=== PATIENT | female | born 1995 | race Caucasian/White ===

== ENCOUNTER 2020-04-29 21:12 | Emergency (ER) | payer OTHER, SELFPAY ==
--- NOTE | ~2020-04-29 | XR_ITS ---
EXAMINATION: XR forearm LT 2V, XR elbow LT min 3V EXAM DATE: 04/29/2020 22:09 INDICATION: Initial encounter following injury, with pain of the left forearm. TECHNIQUE: Left forearm frontal and lateral projections obtained and reviewed. Left elbow frontal, la teral with flexion, and oblique projections obtained and reviewed. There is no prior study for daniel hooper. FINDINGS: There is acute left radial head/neck fracture with significant displacement of a sizable po rtion of the articular surface of the radial head. Closed, posttraumatic fracture. There is large elb ow joint hemarthrosis. The shafts of the radius and ulna are unremarkable. IMPRESSION: Acute mildly comminuted, displaced left radial head/neck fracture. Reviewed, dictated and finalized at location A. IMPRESSION: Acute mildly comminuted, displaced left radial head/neck fracture.
[2020-04-29 21:22] VITALS: BP 144/96; PULSE 102; RESP 15; TEMP 37.5; O2SAT 100
--- NOTE | 2020-04-29 22:48 | ED.UPPEXIN ---
HPI - Extremity Injury (Upper) General Chief Complaint: Extremity Injury, Upper <ROXANA Rojas Last Filed: 04/30/20 00:57> Stated Complaint: Fell while roller bladding <ROXANA Rojas Last Filed: 04/30/20 00:57> Time Seen by Provider: 04/29/20 22:35 <ROXANA Rojas Last Filed: 04/30/20 00:57> Source: patient <ROXANA Rojas Last Filed: 04/30/20 00:57> Mode of arrival: ambulatory <ROXANA Rojas Last Filed: 04/30/20 00:57> Limitations: no limitations <ROXANA Rojas Last Filed: 04/30/20 00:57> History of Present Illness HPI narrative: This is a 24 year old female that presents to the ER for left elbow pain after a fall today. Reports she was roller blading and hit some rocks causing her to lose balance. Reports she fell onto her left elbow. Denies hitting her head or loss of consciousness. Reports since she has had pain in the left elbow. Reports she is unable to straighten the elbow due to pain. Denies numbness. <ROXANA Rojas Last Filed: 04/30/20 00:57> Related Data Home Medications: Home Medications Medication Instructions Recorded Confirmed etonogestrel-ethinyl estradiol vag ring VAGINAL 04/29/20 <ROXANA Rojas Last Filed: 04/30/20 00:57> Allergies/Adverse Reactions: Allergies Allergy/AdvReac Type Severity Reaction Status Date / Time No Known Allergies Allergy Unverified 04/29/20 21:26 <ROXANA Rojas Last Filed: 04/30/20 00:57> Review of Systems Review of Systems: Narrative: CONSTITUTIONAL: Denies fever MUSCULOSKELETAL: Reports joint pain, and myalgia. NEUROLOGIC: Denies numbness, or weakness. <ROXANA Rojas Last Filed: 04/30/20 00:57> All systems reviewed & are unremarkable except as noted in HPI and below <Dania Bacon PA-C - Last Filed: 04/30/20 00:57> PMFSH Past Medical History Medical History: Medical History (Updated 04/30/20 @ 00:09 by Dania Bacon PA-C) No active medical problems <Dania Bacon PA-C - Last Filed: 04/30/20 00:57> Social History Social History: Social History Smoking status: Never smoker <Dania Bacon PA-C - Last Filed: 04/30/20 00:57> Exam Narrative: Exam Narrative: GENERAL: Well-appearing, well-nourished, and in no acute distress. HEAD: Normocephalic, atraumatic. EYES: EOMI. CHEST: Clear to auscultation. No respiratory distress. No wheezes rales or rhonchi HEART: Regular rate and rhythm. No murmur heard. Normal peripheral pulses. EXTREMITIES: Normal range of motion, except decreased extension in the left elbow. No edema. Normal sensation. Normal radial pulses SKIN: Warm, dry, no rash. NEURO: No focal deficits. Alert and oriented x3. PSYCH: Normal mood and affect <Dania Bacon PA-C - Last Filed: 04/30/20 00:57> Course Consultations Consultation #1: Spoke with orthopedics on-call who reports this needs to be seen by someone who specializes and elbows likely at tertiary care center. <Dania Bacon PA-C - Last Filed: 04/30/20 00:57> Date: 04/30/20 <Dania Bacon PA-C - Last Filed: 04/30/20 00:57> Time: 00:08 <Dania Bacon PA-C - Last Filed: 04/30/20 00:57> Consultation #2: Spoke with [facility] transfer line and will give patient clinic number for follow-up. <Dania Bacon PA-C - Last Filed: 04/30/20 00:57> Date: 04/30/20 <Dania Bacon PA-C - Last Filed: 04/30/20 00:57> Time: 00:09 <Dania Bacon PA-C - Last Filed: 04/30/20 00:57> Vital Signs Vital signs: Vital Signs Temperature 99.5 F 04/29/20 21:22 Pulse Rate 102 H 04/29/20 21:22 Respiratory Rate 15 04/29/20 21:22 Blood Pressure 144/96 H 04/29/20 21:22 Pulse Oximetry 100 04/29/20 21:22 Temperature 98.0 F 04/30/20 01:34 Pulse Rate 90 04/30/20 01:22 Respiratory Rate 14 04/30/20 01:22 Blood Pressure 131/74 04/30/20 01:22 Pulse Oximet
[2020-04-29] MEDS: KETOROLAC (*BKC) 60 MG/2 ML VIAL IM (22:58)
[2020-04-29 23:22] VITALS: BP 147/98; PULSE 105; RESP 18; O2SAT 98
[2020-04-29 23:28] VITALS: TEMP 36.7
[2020-04-30 00:36] VITALS: BP 130/66; PULSE 98; RESP 14; O2SAT 98
[2020-04-30 01:22] VITALS: BP 131/74; PULSE 90; RESP 14; TEMP 36.7; O2SAT 99
[2020-04-30 01:34] VITALS: TEMP 36.7
== END 2020-04-30 01:25 | disposition home or self-care (01) ==
PROVIDERS: Emergency Provider General Practice
DX: S52.122A Displaced fracture of head of left radius, initial encounter for closed fracture (principal); V00.111A Fall from in-line roller-skates, initial encounter; Y93.51 Activity, roller skating (inline) and skateboarding
CPT/HCPCS: 29105; 73080; 73090; 99284; A4565; A9270; J1885

== ENCOUNTER 2020-07-09 16:37 | Emergency (ER) | payer OTHER, SELFPAY ==
--- NOTE | ~2020-07-09 | CT_ITS ---
EXAMINATION: CT abdomen pelvis w con EXAM DATE: 07/09/2020 19:04 INDICATION: Abdominal pain, flank pain, dysuria. History of kidney stones. TECHNIQUE: Spiral CT of the abdomen and pelvis was performed following intravenous injection of 100 m L Omnipaque 350. Axial, coronal and sagittal images were reviewed. The dose-length product (DLP) fo r this examination was 939.45 mGy-cm. The exposure was tailored according to patient size (auto mA e xposure control), and iterative reconstruction (ASIR) was used as additional dose reduction technique . There is no prior study for comparison. FINDINGS: The liver, spleen, adrenal glands and pancreas are unremarkable. Gallbladder is unremarkab le. No biliary obstruction. Portal and splenic veins are patent. Kidneys enhance symmetrically. T here is no hydronephrosis. There is a punctate stone in each kidney. There is a 4 mm calcification al vince the course of the left ureter, suspicious for distal ureteral stone. This is about 2 cm from the ureterovesicular junction. Could be intermittently obstructing given that there is no hydronephrosis. Less likely phlebolith. The uterus is anteverted and morphologically normal. The bladder is unrema rkable. There is no retroperitoneal or pelvic lymphadenopathy. The appendix is normal. The stomach and small bowel are unremarkable. There is expected amount of c olonic stool. No free intraperitoneal gas. The heart is normal in size. There are no pericardial or pleural effusions. The lung bases are unremarkable. The bones are unremarkable. IMPRESSION: 1. Calcification suspicious for 4 mm distal left ureteral stone. No hydronephrosis (intermittently o bstructing?) 2. Punctate bilateral nephrolithiasis. Reviewed, dictated and finalized at location A. IMPRESSION: 1. Calcification suspicious for 4 mm distal left ureteral stone. No hydronephr osis (intermittently obstructing?) 2. Punctate bilateral nephrolithiasis.
[2020-07-09 17:08] VITALS: BP 147/87; PULSE 87; RESP 20; TEMP 37.1; O2SAT 97
--- NOTE | 2020-07-09 17:38 | ED.FEMALEGU ---
HPI - Female Genitourinary General Chief complaint: Urogenital-Female Stated complaint: L flank pain Time Seen by Provider: 07/09/20 17:15 Source: patient Mode of arrival: ambulatory Limitations: no limitations History of Present Illness HPI Narrative: This is a 24-year-old female that presents the emergency department for dysuria x6 days. Also reports lower abdominal discomfort. No concern for STDs. Denies fever, nausea, vomiting, or hematuria. Related Data Home Medications Medication Instructions Recorded Confirmed etonogestrel-ethinyl estradiol vag ring VAGINAL 04/29/20 Allergies Allergy/AdvReac Type Severity Reaction Status Date / Time No Known Allergies Allergy Unverified 04/29/20 21:26 Review of Systems Review of Systems: Narrative: CONSTITUTIONAL: Denies fever GASTROINTESTINAL: Reports abdominal pain. Denies nausea, vomiting, or diarrhea. GENITOURINARY: Reports dysuria. Denies hematuria. All systems reviewed & are unremarkable except as noted in HPI and below PMFSH Past Medical History Medical History (Updated 07/09/20 @ 19:23 by Dania Bacon PA-C) No active medical problems Social History Social History Smoking status: Never smoker Exam Narrative: Exam Narrative: GENERAL: Well-appearing, obese, and in no acute distress. HEAD: Normocephalic, atraumatic. EYES: EOMI. CHEST: Clear to auscultation. No respiratory distress. No wheezes rales or rhonchi HEART: Regular rate and rhythm. No murmur heard. Normal peripheral pulses. ABDOMEN: Soft, nondistended, normal active bowel sounds. Mild tenderness to palpation throughout the lower abdomen, without guarding EXTREMITIES: Normal range of motion. No edema. SKIN: Warm, dry, no rash. NEURO: No focal deficits. Alert and oriented x3. PSYCH: Normal mood and affect Course Vital Signs Vital signs: Vital Signs Temperature 98.7 F 07/09/20 17:08 Pulse Rate 87 07/09/20 17:08 Respiratory Rate 07/09/20 17:08 Blood Pressure 147/87 H 07/09/20 17:08 Pulse Oximetry 97 07/09/20 17:08 Temperature 98.7 F 07/09/20 17:08 Pulse Rate 87 07/09/20 17:08 Respiratory Rate 20 07/09/20 17:08 Blood Pressure 147/87 H 07/09/20 17:08 Pulse Oximetry 97 07/09/20 17:08 MDM - Female Genitourinary MDM Narrative Medical decision making narrative: Patient presents to the emergency department for lower abdominal discomfort and dysuria. She is afebrile and nontoxic-appearing. CBC is without leukocytosis. Metabolic panel without concerning findings. UA without evidence of infection. With 6-10 red blood cells. Bedside test is negative. CT scan of the abdomen and pelvis shows a calcification suspicious for 4 mm distal left ureteral stone. Patient updated on case findings. She will be started on Flomax and given pain medication as needed. She will be given a urine strainer. She is to follow-up with urology. Patient was given warnings to return to the ER Lab Data Attestation: I reviewed the patient's lab results. Result diagrams: 07/09/20 17:29 07/09/20 17:29 Labs: Lab Results 07/09/20 07/09/20 07/09/20 Range/Units 17:26 17:29 17:29 WBC 9.0 (4.5-10.0) K/mm3 RBC 4.30 (4.2-5.4) M/mm3 Hgb 13.1 (12.0-15.0) g/dL Hct 38.2 (37.0-47.0) % MCV 88.8 (80-100) fl MCH 30.5 (26-34) pg MCHC 34.3 (32-36) g/dl RDW 13.0 (11.5-14.5) % Plt Count 327 (150-375) k/mm3 MPV 10.2 (7.4-10.4) fl Immature Gran % (Auto) 0.2 (0-0.5) % Neut % (Auto) 51.4 (45.5-73.1) % Lymph % (Auto) 37.3 (18.3-44.2) % [place] % (Auto) 9.5 H (2.6-8.5) % Eos % (Auto) 1.3 (0-4.4) % Baso % (Auto) 0.3 (0.2-1.2) % Lymph # (Auto) 3.34 H (0.9-3.2) K/mm3 [place] # (Auto) 0.9 H (0.1-0.6) K/mm3 Eos # (Auto) 0.1 (0-0.3) K/mm3 Baso # (Auto) 0.0 (0.0-0.1) K/mm3 Abs Immat Gran (auto) 0.02 (0.00-0.031) K/mm3 Absolute Neuts (auto) 4.6 (1.3-6.7)
[2020-07-09 17:41] LABS: Basophils Percent Auto 0.3 % (0.2-1.2); Eosinophils Absolute Auto 0.1 K/mm3 (0-0.3); Eosinophils Percent Auto 1.3 % (0-4.4); Hematocrit 38.2 % (37.0-47.0); Hemoglobin 13.1 g/dL (12.0-15.0); Immature Granulocyte Absolute 0.02 K/mm3 (0.00-0.031); Immature Granulocyte Percent A 0.2 % (0-0.5); Lymphocytes Absolute Auto 3.34 K/mm3 (0.9-3.2); Lymphocytes Percent Auto 37.3 % (18.3-44.2); Mean Corpuscular HGB Conc 34.3 g/dl (32-36); Mean Corpuscular Hemoglobin 30.5 pg (26-34); Mean Corpuscular Volume 88.8 fl (80-100); Mean Platelet Volume 10.2 fl (7.4-10.4); Monocytes Absolute Auto 0.9 K/mm3 (0.1-0.6); Monocytes Percent Auto 9.5 % (2.6-8.5); Neutrophils Absolute Auto 4.6 K/mm3 (1.3-6.7); Neutrophils Percent Auto 51.4 % (45.5-73.1); Platelet Count Result 327 k/mm3 (150-375)
[2020-07-09 17:46] LABS: Add Urine Microscopic? YES; Appearance Urine Clear (Clear); Bacteria Urine Trace /hpf; Bilirubin Urine Negative (Negative); Blood Urine 1+ (Negative); Color Urine Straw (Yellow); Glucose Urine UA Negative (Negative); Ketones Urine Negative (Negative); Leukocyte Esterase Ur Negative LEU/UL (Negative); Nitrate Urine Negative (Negative); Protein Urine Negative (Negative); Specific Grav Ur 1.015 (1.001-1.035); Squamous Epithelial Cell Urine Rare /hpf (Few); Urobilinogen Urine Negative mg/dL (<2.0); WBC Urine 0-3 /hpf
[2020-07-09 17:55] LABS: Anion Gap 8 mmol/L (8-16); Blood Urea Nitrogen 9 mg/dL (7-17); Calcium 9.3 mg/dL (8.4-10.2); Carbon Dioxide 24 mmol/L (22-30); Chloride 103 mmol/L (98-107); Estimated CRCL calculation 108 ml/min; Estimated Glomerular Filt Rate > 60; Glucose 91 mg/dL (65-105); Potassium 3.7 mmol/L (3.4-5.0); Sodium 135 mmol/L (137-145)
[2020-07-09 19:51] VITALS: BP 130/72; PULSE 78; RESP 18; O2SAT 99
== END 2020-07-09 19:55 | disposition home or self-care (01) ==
PROVIDERS: Physician Assistant; Emergency Provider Emergency Medicine
DX: N20.1 Calculus of ureter (principal)
CPT/HCPCS: 36415; 74177; 80048; 81001; 81025; 85025; 99284; Q9967

== ENCOUNTER 2020-08-25 13:57 | Emergency (ER) | payer OTHER, SELFPAY ==
--- NOTE | ~2020-08-25 | CT_ITS ---
EXAMINATION: CT abdomen pelvis wo con DATE: 08/25/2020 18:11 INDICATION: Kidney stone presenting with left flank pain TECHNIQUE: Computed tomography (CT) of the abdomen and pelvis was performed without intravenous contr ast. Automated exposure control and iterative reconstruction technique were employed. The dose-length product was 584.21 mGy-cm. COMPARISON: 07/09/2020 FINDINGS: Lung bases are clear. Heart size is normal. No pericardial or pleural effusion. Liver, gallbladder, s pleen, pancreas and bilateral adrenal glands are normal. Bilateral nephrolithiasis with 1-2 mm and <1 mm stones in an upper pole calyx of the right kidney and 2 mm and <1 mm stones in a lower pole calyx of the left kidney. No interval change in a 3 mm calcification along the course of the distal left u reter which remains indeterminate for nonobstructing distal left ureteral stone versus adjacent phleb olith. No hydronephrosis in either kidney. Bowels including the appendix are normal. 2 cm left adnexa l cyst/follicle. Bladder, anteverted uterus and right adnexa are unremarkable. No free intraperitonea l gas or fluid. No pathologically enlarged abdominal or pelvic lymphadenopathy. Mild lumbar levocurva ture with minimal spondylosis. IMPRESSION: 1. Bilateral nonobstructing nephrolithiasis. Persistent 3 mm calcific calcification along the course of the distal left ureter which could represent a nonobstructing stone or more likely an adjacent phl ebolith. 2. 2 cm left adnexal cyst/follicle. Reviewed, dictated and finalized at location A. IMPRESSION: 1. Bilateral nonobstructing nephrolithiasis. Persistent 3 mm calcific calcifica tion along the course of the distal left ureter which could represent a nonobst ructing stone or more likely an adjacent phlebolith. 2. 2 cm left adnexal cyst/follicle.
[2020-08-25 14:17] VITALS: BP 139/107; PULSE 108; RESP 14; TEMP 36.7; O2SAT 99
[2020-08-25 14:28] LABS: Basophils Percent Auto 0.3 % (0.2-1.2); Eosinophils Absolute Auto 0.1 K/mm3 (0-0.3); Eosinophils Percent Auto 1.3 % (0-4.4); Hematocrit 42.3 % (37.0-47.0); Hemoglobin 14.2 g/dL (12.0-15.0); Immature Granulocyte Absolute 0.02 K/mm3 (0.00-0.031); Immature Granulocyte Percent A 0.2 % (0-0.5); Lymphocytes Absolute Auto 2.54 K/mm3 (0.9-3.2); Lymphocytes Percent Auto 29.1 % (18.3-44.2); Mean Corpuscular HGB Conc 33.6 g/dl (32-36); Mean Corpuscular Hemoglobin 30.1 pg (26-34); Mean Corpuscular Volume 89.6 fl (80-100); Mean Platelet Volume 10.6 fl (7.4-10.4); Monocytes Absolute Auto 0.4 K/mm3 (0.1-0.6); Monocytes Percent Auto 4.5 % (2.6-8.5); Neutrophils Absolute Auto 5.6 K/mm3 (1.3-6.7); Neutrophils Percent Auto 64.6 % (45.5-73.1); Platelet Count Result 282 k/mm3 (150-375); Red Blood Count 4.72 M/mm3 (4.2-5.4); Red Cell Distribution Width 12.5 % (11.5-14.5); White Blood Count 8.7 K/mm3 (4.5-10.0)
[2020-08-25 14:42] LABS: Anion Gap 10 mmol/L (8-16); Blood Urea Nitrogen 7 mg/dL (7-17); Calcium 9.5 mg/dL (8.4-10.2); Carbon Dioxide 27 mmol/L (22-30); Chloride 103 mmol/L (98-107); Estimated CRCL calculation 123 ml/min; Estimated Glomerular Filt Rate > 60; Glucose 122 mg/dL (65-105); Sodium 140 mmol/L (137-145)
[2020-08-25 14:54] LABS: Add Urine Microscopic? YES; Appearance Urine Clear (Clear); Bacteria Urine Trace /hpf; Bilirubin Urine Negative (Negative); Blood Urine Negative (Negative); Color Urine Amber (Yellow); Glucose Urine UA Negative (Negative); Ketones Urine Negative (Negative); Leukocyte Esterase Ur Negative LEU/UL (Negative); Mucus Urine Rare /lpf; Nitrate Urine Positive (Negative); Protein Urine Negative (Negative); Specific Grav Ur 1.019 (1.001-1.035); Squamous Epithelial Cell Urine Rare /hpf (Few); WBC Urine 0-3 /hpf
[2020-08-25 16:14] VITALS: BP 128/75; PULSE 94; RESP 20; O2SAT 98
--- NOTE | 2020-08-25 17:16 | ED.GENADULT ---
HPI - General Adult General Chief complaint: Back Pain/Injury Stated complaint: severe kidney stones complications Time Seen by Provider: 08/25/20 16:29 Source: patient Mode of arrival: ambulatory Limitations: no limitations History of Present Illness HPI narrative: 24 years old white female presents with left lower back pain radiating to left lower quadrant associated with dysuria. Started few days ago. Patient reported history of left kidney stone since July 17, did not pass it yet. Patient reports some nausea, no vomiting. Patient denies any fever chills, chest pain, shortness of breath, back pain. Related Data Home Medications Medication Instructions Recorded Confirmed etonogestrel-ethinyl estradiol vag ring VAGINAL 04/29/20 Allergies Allergy/AdvReac Type Severity Reaction Status Date / Time No Known Allergies Allergy Unverified 04/29/20 21:26 Review of Systems Review of Systems: Narrative: CONSTITUTIONAL: Denies fever, chills, or sweats. EYES: Denies visual changes, redness, or discharge. ENT: Denies rhinorrhea, congestion, sore throat, or otalgia. CARDIOVASCULAR: Denies chest pain, palpitations, or edema. RESPIRATORY: Denies cough or dyspnea. GASTROINTESTINAL: Denies abdominal pain, nausea, vomiting, or diarrhea. GENITOURINARY: Denies dysuria or hematuria. SKIN: Denies rash or itching. MUSCULOSKELETAL: Denies back pain, joint pain, or myalgia. NEUROLOGIC: Denies headache, numbness, or weakness. PSYCHIATRIC: Denies anxiety or depression. PMFSH Past Medical History Medical History (Updated 08/25/20 @ 18:55 by Nelda Flores MD) Kidney stone No active medical problems Social History Social History Smoking status: Never smoker Gender identity (if verbalized by the patient): Female Exam Narrative: Exam Narrative: General appearance: Well-developed, well-nourished Skin: Normal color Head: Normocephalic, nontraumatic Eyes: Clear conjunctiva ENT: Oropharynx normal, ears normal, nose normal Neck: Supple, nontender Chest and respiratory: Airway patent, no respiratory distress, no accessory muscle use Heart: Regular rate/rhythm Abdomen: Soft, mild left lower quadrant tenderness, mild left lower back tenderness, no bruises, no swelling no redness no rash, quiet bowel sounds Vascular: Normal peripheral pulses, normal capillary refill. Musculoskeletal: Normal range of motion, nontender back Neurologic: Alert and oriented ?3, MEDIA RELATIONS MANAGER is normal as tested, no gross motor deficit Course Course Emergency Course: Improving Vital Signs Vital signs: Vital Signs Temperature 36.7 C 08/25/20 14:17 Pulse Rate 108 H 08/25/20 14:17 Respiratory Rate 14 08/25/20 14:17 Blood Pressure 139/107 H 08/25/20 14:17 Pulse Oximetry 99 08/25/20 14:17 Temperature 36.7 C 08/25/20 14:17 Pulse Rate 94 08/25/20 16:14 Respiratory Rate 20 08/25/20 16:14 Blood Pressure 128/75 08/25/20 16:14 Pulse Oximetry 98 08/25/20 16:14 Medical Decision Making MDM Narrative Medical decision making narrative: Labs, CT abdomen and pelvis without contrast ordered. Further plan to follow Vital Signs Vital Signs: Vital Signs Temperature 36.7 C 08/25/20 14:17 Pulse Rate 108 H 08/25/20 14:17 Respiratory Rate 14 08/25/20 14:17 Blood Pressure 139/107 H 08/25/20 14:17 Pulse Oximetry 99 08/25/20 14:17 Temperature 36.7 C 08/25/20 14:17 Pulse Rate 94 08/25/20 16:14 Respiratory Rate 20 08/25/20 16:14 Blood Pressure 128/75 08/25/20 16:14 Pulse Oximetry 98 08/25/20 16:14 Lab Data Result diagrams: 08/25/20 14:22 08/25/20 14:22
[2020-08-25] MEDS: KETOROLAC 30 MG/ML VIAL (*BKC) IV PUSH (17:21)
[2020-08-25 19:53] VITALS: BP 132/68; PULSE 78; RESP 20; O2SAT 99
== END 2020-08-25 19:55 | disposition home or self-care (01) ==
PROVIDERS: Emergency Medicine; Emergency Provider Emergency Medicine
DX: N20.0 Calculus of kidney (principal); N83.202 Unspecified ovarian cyst, left side; N39.0 Urinary tract infection, site not specified; Z87.442 Personal history of urinary calculi
CPT/HCPCS: 36415; 74176; 80048; 81001; 81025; 85025; 96365; 96375; 99284; J0696; J1885

== ENCOUNTER 2020-08-29 01:04 | Day surgery (SDC) | payer OTHER, SELFPAY ==
[2020-08-28 16:44] VITALS: BMI 35.7
[2020-08-29] VITALS (8 sets, daily range): BP systolic 98–150; BP diastolic 54–94; PULSE 60–98; RESP 10–20; TEMP 36.4–36.6; O2SAT 100
--- NOTE | ~2020-08-29 | XR_ITS ---
EXAMINATION: XR retrograde pyelo w/stent LT DATE: 08/29/2020 13:15 INDICATION: Left ureteral stone. TECHNIQUE: 5 intraoperative fluoroscopic views of the abdomen and pelvis were obtained. I was not pre sent. Fluoroscopy exposure time was 10 seconds. COMPARISON: CT abdomen and pelvis 08/25/2020 FINDINGS: The left-sided retrograde pyelogram is unremarkable. The final images demonstrate a left in ternal ureteral stent in expected position. IMPRESSION: 1. Left internal ureteral stent in expected position. Reviewed, dictated and finalized at location A.
[2020-08-29] MEDS: LACTATED RINGERS 1,000 ML 30 ML IV CONT ×2 (12:10→13:34)
--- NOTE | 2020-08-29 12:16 | WPDANESEPPF ---
Anes - Initial Pre Proc Eval Procedure: Operation Date: 08/29/20 14:00 Proposed Procedures p Cystoscopy, Left Ureteroscopy, Left Retrograde Pyelogram, Left Stone Extraction, Possible Left Stent Placement - Logan Abreu MD s Possible Holmium Laser Procedure - Logan Abreu MD Date/Time: 08/29/20 12:16 Surgeon: Logan Abreu MD Pre Op Diagnosis: Left Ureteral Calculus Patient Data Age: 24 Gender: F Height: 5 ft 5 in Weight: 97.52 kg Allergies Allergy/AdvReac Type Severity Reaction Status Date / Time No Known Allergies Allergy Unverified 08/29/20 12:16 Home Medications Medication Instructions Recorded Confirmed Type hydrocodone-acetaminophen 1 tablet PO Q6H PRN #14 tablet 07/09/20 08/28/20 Rx ciprofloxacin HCl 500 mg PO Q12H #14 tablet 08/25/20 08/28/20 Rx naproxen [EC-Naproxen] 500 mg PO BID PRN #20 tablet 08/25/20 08/28/20 Rx ondansetron HCl [Zofran] 4 mg PO Q6H PRN #10 tablet 08/25/20 08/28/20 Rx Patient hx anesthesia problems: none Family hx anesthesia problems: none PMFSH Past Medical History Medical History (Updated 08/29/20 @ 12:17 by Camron Gonsalves MD) Asthma Eczema Kidney stone Obesity Surgical History Surgical History (Updated 08/29/20 @ 12:17 by Camron Gonsalves MD) H/O elbow surgery Hx of tonsillectomy Social History Social History Smoking status: Never smoker Living arrangements: with family Gender identity (if verbalized by the patient): Female Spiritual care concerns: No Anes - Eval Final PreProcedure Day of Procedure 08/29/20 12:16 Patient weight: obese Heart: regular rate and rhythm Lungs: clear to auscultation Airway: Mallampati scale class II Neurological: alert and oriented Last oral intake: >/= 8 hours ASA classification: II Emergent: no Anesthetic plan: proceed Anesthesia type and monitoring: general LMA and standard monitoring Informed Consent: The patient's anesthetic plan and its attendant risks and benefits were discussed with the patient/family/POA. Questions were solicited and answers provided to the satisfaction of the patient/family/POA.
--- NOTE | 2020-08-29 12:34 | WPDHPUPDATE1 ---
History and Physical Update Update Date/Time: 08/29/20 12:34 History and Physical has been reviewed, including an updated exam of the patient. There are NO changes in the patient's condition. Risks, benefits, and alternatives have been discussed and questions answered. Patient agrees to proceed with procedure. Plan for cystoscopy , left retrograde, left ureteroscopy with stone extraction, possible laser, stent placement.
[2020-08-29] MEDS: ceFAZolin 2 GM/D5W 50 ML 2 GM/50 ML BAG IVPB (12:53)
--- NOTE | 2020-08-29 13:14 | PM.PROC ---
Procedure Note - Detailed Date of procedure: 08/29/20 Pre-op diagnosis: Left Ureteral Calculus Post-op diagnosis: same Procedure performed: Cystoscopy, left retrograde pyelogram, left ureteroscopy with stone extraction, left ureteral stent placement 4.8 Turkish contour Description of procedure: Patient is taken the operative suite and correctly identified. Once anesthesia was obtained she was placed in the dorsal lithotomy position and prepped and draped usual sterile fashion. Twenty-two Turkish scope was inserted into the bladder in direct vision. There is no tumors noted. The left ureteral orifice was cannulated with a guidewire. A rigid ureteral scope was inserted. The stone stone was visualized and retrieved in its entirety using an escape basket. Pyelogram was then performed to confirm placement of the stent. 4.8 contour stent was then placed with the proximal end coiled in the renal pelvis and the distal in the bladder. Bladder was drained. 2% viscous lidocaine was inserted. Patient is taken recovery room stable condition. She will follow up in a week's time for stent removal. Anesthesia: GLMA Surgeon: Logan Abreu MD Drains: Yes Packing: No Pathology: yes Complications: No immediate complications Condition: stable Disposition: PACU
[2020-08-29] MEDS: LIDOCAINE HCL 2% GEL UROJET 10 ML PKG MUCOUS MEM (13:15)
--- NOTE | 2020-08-29 15:03 | SUR.PHASEII ---
1409; PT ARRIVED INTO [facility] PER STRETCHER. TAKEN DIRECTLY TO BATHROOM. 1420; PT WALKED TO ROOM. GAIT STEADY. VOIDED. C/O URGENCY AND BURNING WITH URINATION. PT DOES NOT WANT PAIN MEDICINE. STATES ITS NOT PAIN
--- NOTE | 2020-08-29 15:05 | SUR.PHASEII ---
1500; PT STATES SHE IS READY TO GO HOME.
--- NOTE | 2020-08-29 15:21 | SUR.PHASEII ---
1520; CALLED DR ISLAS OFFICE. PT HAS CIPRO FROM ED VISIT THIS PAST TUESDAY. STATES SHE HAS [address] JANEL ALTMAN NURSE STATES TO FINISH CIPRO. DO NOT GIVE BACTRIM SCRIPT.
--- NOTE | 2020-08-29 15:26 | SUR.PHASEII ---
PT NOTIFIED TO CONTINUE AND FINISH CIPRO. BACTRIM SCRIPT SHREDDED.
[2020-08-29] MEDS: oxyCODONE HCL (*CRX) 5 MG TAB IR PO (15:34)
== END 2020-08-29 15:35 | disposition home or self-care (01) ==
PROVIDERS: Visit Provider Urology
PROC: (CPT 52352; principal; 2020-08-29 14:00)
DX: N20.1 Calculus of ureter (principal); E66.9 Obesity, unspecified; Z68.36 Body mass index [BMI] 36.0-36.9, adult
CPT/HCPCS: 52352; 52332; 74420; 82365; 88300; A9270; C1758; C1769; C2617; J0690; J1100; J2250; J2405; J2704; J3010; J7120; Q9966

== ENCOUNTER 2020-11-17 17:10 | Outpatient (CLI) | payer OTHER, SELFPAY ==
[2020-11-18 23:30] LABS: SARS-CoV-2 RNA PCR Negative
== END 2020-11-17 17:11 | disposition home or self-care (01) ==
LOC: CHSLAB 17:14
PROVIDERS: Visit Provider Obstetrics & Gynecology
DX: Z20.828 Contact with and (suspected) exposure to other viral communicable diseases (principal)
CPT/HCPCS: 87635; C9803; U0003

== ENCOUNTER 2021-02-14 10:48 | Observation (INO) | payer OTHER, MEDICAID, SELFPAY ==
[2021-02-14 11:09] VITALS: BP 140/87; PULSE 103
[2021-02-14 11:15] VITALS: BP 140/89; PULSE 103
[2021-02-14 11:22] VITALS: BMI 43.9
[2021-02-14 11:30] VITALS: BP 132/86; PULSE 101; TEMP 36.9
[2021-02-14 11:34] LABS: Add Urine Microscopic? YES; Appearance Urine Cloudy (Clear); Bacteria Urine 1+ /hpf; Bilirubin Urine Negative (Negative); Blood Urine 2+ (Negative); Color Urine Yellow (Yellow); Glucose Urine UA 1+ mg/dL (Negative); Ketones Urine Negative (Negative); Leukocyte Esterase Ur Negative LEU/UL (NEGATIVE); Mucus Urine Few /lpf; Nitrate Urine Negative (Negative); Protein Urine 1+ mg/dL (Negative); RBC Urine >75 /hpf (0-2); Squamous Epithelial Cell Urine Occasional /hpf (Few); Urobilinogen Urine Negative mg/dL (<2.0)
[2021-02-14 11:45] VITALS: BP 127/85; PULSE 88
[2021-02-14 12:00] VITALS: BP 131/81; PULSE 92
[2021-02-14 12:15] VITALS: BP 121/76; PULSE 87
--- NOTE | 2021-02-15 09:13 | PM.OBTRLD ---
OB - Triage/Final Diagnosis Visit Information Comments/Additional reasons for admission: I have assessed the risk for this patient, Yovana Soto, and determined that she would benefit from observation care. Evaluation Laboratory results: Laboratory Tests 02/14/21 11:11 Urine Color Yellow Urine Appearance Cloudy H Urine pH 6.0 Ur Specific Crawford 1.020 Urine Protein 1+ H Urine Glucose (UA) 1+ H Urine Ketones Negative Ur Blood (Man) 2+ H Urine Nitrate Negative Urine Bilirubin Negative Urine Urobilinogen Negative Ur Leukocyte Esterase Negative Urine RBC >75 H Urine WBC 4-6 H Ur Squamous Epith Cells Occasional Urine Bacteria 1+ H Hyaline Casts 1-2 Urine Mucus Few H Vital signs: Vital Signs - 24 hr 02/14/21 11:09 02/14/21 11:15 02/14/21 11:30 Temperature 36.9 C Pulse Rate 103 H 103 H 101 H Blood Pressure 140/87 140/89 132/86 02/14/21 11:45 02/14/21 12:00 02/14/21 12:15 Temperature Pulse Rate 88 92 87 Blood Pressure 127/85 131/81 121/76 Final Diagnosis (1) Dysuria during : Code(s): O26.899 - Other specified related conditions, unspecified trimester; R30.0 - Dysuria Status: Acute
== END 2021-02-14 12:43 | disposition home or self-care (01) ==
PROVIDERS: Admitting Provider Obstetrics & Gynecology; Visit Provider Obstetrics & Gynecology
DX: O26.892 Other specified pregnancy related conditions, second trimester (principal); R30.0 Dysuria; Z3A.23 23 weeks gestation of pregnancy
CPT/HCPCS: 81001; 87086; 87088; G0378; G0379

== ENCOUNTER 2021-03-24 10:34 | Outpatient (CLI) | payer OTHER, MEDICAID, SELFPAY ==
[2021-03-24 12:10] LABS: Hematocrit 32.5 % (37.0-47.0); Hemoglobin 10.8 g/dL (12.0-15.0); Mean Corpuscular HGB Conc 33.2 g/dl (32-36); Mean Corpuscular Hemoglobin 29.5 pg (26-34); Mean Corpuscular Volume 88.8 fl (80-100); Mean Platelet Volume 9.9 fl (7.4-10.4); Platelet Count Result 323 k/mm3 (150-375); Red Blood Count 3.66 M/mm3 (4.2-5.4); Red Cell Distribution Width 12.7 % (11.5-14.5); White Blood Count 13.9 K/mm3 (4.5-10.0)
[2021-03-24 12:27] LABS: Glucose 1 Hour PP 50gm Dose 87 mg/dL
[2021-03-24 13:05] LABS: HIV 1/2 Ab P24 Ag Result Negative (Negative)
== END 2021-03-24 10:35 | disposition home or self-care (01) ==
LOC: ANHLAB 10:37
PROVIDERS: Visit Provider Obstetrics & Gynecology
DX: Z34.92 Encounter for supervision of normal pregnancy, unspecified, second trimester (principal); Z3A.00 Weeks of gestation of pregnancy not specified
CPT/HCPCS: 36415; 82947; 85027; 86703; G0432

== ENCOUNTER 2021-03-31 20:52 | Observation (INO) | payer OTHER, MEDICAID, SELFPAY ==
[2021-03-31 21:03] VITALS: TEMP 36.8
[2021-03-31 21:09] VITALS: BP 124/86; PULSE 102
[2021-03-31 21:10] VITALS: BMI 34.1
--- NOTE | 2021-03-31 21:10 | OBADM ---
This patient, Yovana Soto, admitted to the OB room [facility] for observation. Patient/family oriented to hospital policies and general routines including ID bracelet, bed and alarms, visiting hours, pain management, procedures, bathroom and other care routines, personal items, smoking policy, room service/diet, and visiting hours. Patient/Family are encouraged to report perceived risks to care and to ask questions if they do not understand what they are told or what they should do.
[2021-03-31 21:15] VITALS: BP 112/90; PULSE 100
[2021-03-31 21:30] VITALS: BP 128/91; PULSE 101
[2021-03-31 21:45] VITALS: BP 124/81; PULSE 84
--- NOTE | 2021-04-04 10:02 | PM.OBTRLD ---
OB - Triage/Final Diagnosis Visit Information Reason for evaluation: threatened labor Comments/Additional reasons for admission: I have assessed the risk for this patient, Yovana Soto, and determined that she would benefit from observation care.
== END 2021-03-31 22:10 | disposition home or self-care (01) ==
PROVIDERS: Admitting Provider Obstetrics & Gynecology; Visit Provider Obstetrics & Gynecology
DX: O47.03 False labor before 37 completed weeks of gestation, third trimester (principal); Z3A.29 29 weeks gestation of pregnancy
CPT/HCPCS: G0378; G0379

== ENCOUNTER 2021-04-30 20:58 | Observation (INO) | payer OTHER, MEDICAID, SELFPAY ==
[2021-04-30 21:16] VITALS: BP 142/91; PULSE 106
[2021-04-30 21:31] VITALS: BP 123/83; PULSE 93
[2021-04-30 21:39] VITALS: BMI 42.5
--- NOTE | 2021-04-30 21:40 | LDADM ---
This patient, Yovana Soto, was admitted to [facility] on 04/30/21 at 20:58. Plans for labor, pain management and were discussed with patient. Patient/family oriented to hospital policies and general routines including ID bracelet, bed and alarms, visiting hours, pain management, procedures, bathroom and other care routines, personal items, smoking policy, room service/diet and guest tray routines, security routines, and visiting hours. Patient/Family are encouraged to report perceived risks to care and to ask questions if they do not understand what they are told or what they should do. See [facility] for further documentation.
[2021-04-30 21:45] VITALS: BP 128/84; PULSE 94
[2021-04-30 21:47] LABS: Add Urine Microscopic? YES; Amorphous Sediment Urine Few; Appearance Urine Cloudy (Clear); Bacteria Urine Trace /hpf; Bilirubin Urine Negative (Negative); Blood Urine Negative (Negative); Color Urine Yellow (Yellow); Glucose Urine UA 1+ mg/dL (Negative); Ketones Urine Negative (Negative); Leukocyte Esterase Ur Negative LEU/UL (Negative); Mucus Urine Rare /lpf; Nitrate Urine Negative (Negative); Protein Urine 1+ mg/dL (Negative); RBC Urine 0-2 /hpf (0-2); Specific Grav Ur 1.018 (1.001-1.035); Squamous Epithelial Cell Urine Occasional /hpf (Few); Urobilinogen Urine Negative mg/dL (<2.0)
--- NOTE | 2021-05-03 16:06 | PM.OBTRLD ---
OB - Triage/Final Diagnosis Visit Information Reason for evaluation: threatened labor Comments/Additional reasons for admission: I have assessed the risk for this patient, Yovana Soto, and determined that she would benefit from observation care. Evaluation Laboratory results: Laboratory Tests 04/30/21 21:33 Urine Color Yellow Urine Appearance Cloudy H Urine pH 6.0 Ur Specific [place] 1.018 Urine Protein 1+ H Urine Glucose (UA) 1+ H Urine Ketones Negative Ur Blood (Man) Negative Urine Nitrate Negative Urine Bilirubin Negative Urine Urobilinogen Negative Leukocyte Esterase Rfl Negative Urine RBC 0-2 Urine WBC 4-6 H Ur Squamous Epith Cells Occasional Amorphous Sediment Few H Urine Bacteria Trace Urine Mucus Rare
== END 2021-04-30 22:11 | disposition home or self-care (01) ==
PROVIDERS: Admitting Provider Obstetrics & Gynecology; Visit Provider Obstetrics & Gynecology
DX: O47.03 False labor before 37 completed weeks of gestation, third trimester (principal); Z3A.33 33 weeks gestation of pregnancy
CPT/HCPCS: 81001; G0378; G0379

== ENCOUNTER 2021-05-05 11:05 | Outpatient (RCR) | payer OTHER, MEDICAID, SELFPAY ==
[2021-04-07 11:15] VITALS: BP 137/80; PULSE 95
--- NOTE | ~2021-05-05 | US_ITS ---
EXAMINATION: US OB BPP wo non-stress DATE: 04/07/2021 11:10 INDICATION: Decreased movement. TECHNIQUE: Real-time pelvic ultrasound was performed. COMPARISON: None. FINDINGS: There is a single living fetus in vertex presentation. The placenta is anterior. heart rate is 137 beats per minute (bpm). Biophysical profile performed by the technologist: breathing (30 sec sustained breathing in 30 minutes): 2 out of 2 movement (3 gross body movements in 30 minutes): 2 out of 2 tone (one episode of hkpfyji-gmrefzrkd-rvfdfuk limb movement): 2 out of 2 Amniotic fluid pocket (2 cm): 2 out of 2 Total score: 8 out of 8 IMPRESSION: 1. Single living fetus in vertex presentation. 2. Biophysical profile 8 out of 8. Reviewed, dictated and finalized at location B.
--- NOTE | ~2021-05-05 | US_ITS ---
EXAMINATION: US OB limited w BPP DATE: 05/05/2021 12:12 CDT INDICATION: Decreased movements. TECHNIQUE: Real-time transabdominal obstetric ultrasound. FINDINGS: Comparison to 04/07/2021 There is a single living fetus in vertex presentation. The placenta is anterior without placenta pre via. cardiac activity and movement is noted with a heart rate of 141 beats per minute. Biophysical profile: breathin of 2 movement: 2 of 2 tone: 2 of 2 Amniotic flud pocket: 2 of 2 Total score: 8 of 8 ARMANDO is normal measuring 11.9 cm. IMPRESSION: 1. Single living intrauterine in vertex presentation. 2: Total biophysical profile score of 8/8. 3: Normal ARMANDO measures 11.9 cm. Reviewed, dictated and finalized at location B.
[2021-05-05 11:55] VITALS: BP 126/83; PULSE 112
== END 2021-05-26 07:50 | disposition home or self-care (01) ==
LOC: ANHOBOP 11:05
PROVIDERS: Visit Provider Obstetrics & Gynecology
DX: O36.8190 Decreased fetal movements, unspecified trimester, not applicable or unspecified (principal); Z3A.30 30 weeks gestation of pregnancy; Z3A.34 34 weeks gestation of pregnancy
CPT/HCPCS: 59025; 76815; 76819

== ENCOUNTER 2021-05-24 12:20 | Inpatient (IN) | payer OTHER, MEDICAID, SELFPAY ==
[2021-05-24] VITALS (17 sets, daily range): BP systolic 108–144; BP diastolic 57–100; PULSE 86–112; TEMP 36.2–36.7; BMI 45.3
--- NOTE | 2021-05-24 12:49 | PC.NURSE ---
Dr. Lyon informed of pt's arrival with elevated BP's from home and increased swelling, discussed headaches in the mornings that resolve after eating, occasional floaters in vision, epigastric solid sensation, 2+ pitting in feet and 1+ pitting pre-tibial. Informed FHT's reactive and BP's 141/95 and 135/90. Orders received.
[2021-05-24 13:25] LABS: Basophils Percent Auto 0.2 % (0.2-1.2); Eosinophils Absolute Auto 0.1 K/mm3 (0-0.3); Eosinophils Percent Auto 1.1 % (0-4.4); Hematocrit 35.9 % (37.0-47.0); Hemoglobin 11.5 g/dL (12.0-15.0); Immature Granulocyte Absolute 0.07 K/mm3 (0.00-0.031); Immature Granulocyte Percent A 0.6 % (0-0.5); Lymphocytes Absolute Auto 1.83 K/mm3 (0.9-3.2); Lymphocytes Percent Auto 16.7 % (18.3-44.2); Mean Corpuscular Hemoglobin 28.9 pg (26-34); Mean Corpuscular Volume 90.2 fl (80-100); Mean Platelet Volume 10.6 fl (7.4-10.4); Monocytes Absolute Auto 0.8 K/mm3 (0.1-0.6); Monocytes Percent Auto 7.2 % (2.6-8.5); Neutrophils Absolute Auto 8.2 K/mm3 (1.3-6.7); Neutrophils Percent Auto 74.2 % (45.5-73.1); Platelet Count Result 262 k/mm3 (150-375); Red Blood Count 3.98 M/mm3 (4.2-5.4); Red Cell Distribution Width 16.1 % (11.5-14.5)
[2021-05-24 13:35] LABS: Add Urine Microscopic? YES; Appearance Urine Clear (Clear); Bacteria Urine Trace /hpf; Bilirubin Urine Negative (Negative); Blood Urine Negative (Negative); Color Urine Yellow (Yellow); Glucose Urine UA 1+ mg/dL (Negative); Ketones Urine Negative (Negative); Leukocyte Esterase Ur Trace LEU/UL (Negative); Mucus Urine Rare /lpf; Nitrate Urine Negative (Negative); Protein Urine Negative (Negative); RBC Urine 0-2 /hpf (0-2); Specific Grav Ur 1.014 (1.001-1.035); Squamous Epithelial Cell Urine Occasional /hpf (Few); Urobilinogen Urine Negative mg/dL (<2.0); WBC Urine 0-3 /hpf
[2021-05-24 13:36] LABS: Total Protein Urine Random 12 mg/dL; Ur Ttl Prot Creatinine Ratio 0.14 mg/mg (0-0.20)
[2021-05-24 13:39] LABS: Alanine Aminotransferase 20 U/L (4-35); Albumin Level 3.4 g/dL (3.5-5.1); Alkaline Phosphatase 118 U/L (38-126); Anion Gap 5 mmol/L (8-16); Aspartate Amino Transferase 26 U/L (14-36); Bilirubin,Total 0.2 mg/dL (0.2-1.3); Blood Urea Nitrogen 7 mg/dL (7-17); Calcium 9.4 mg/dL (8.4-10.2); Carbon Dioxide 25 mmol/L (22-30); Chloride 106 mmol/L (98-107); Estimated Glomerular Filt Rate > 60; Glucose 83 mg/dL (65-105); Potassium 4.1 mmol/L (3.4-5.0); Sodium 136 mmol/L (137-145); Uric Acid 4.8 mg/dL (2.5-7.5)
--- NOTE | 2021-05-24 14:05 | PC.NURSE ---
Dr. Lyon updated on BP's and informed of lab results. Orders received to admit and induce labor.
--- NOTE | 2021-05-24 14:35 | LDADM ---
This patient, Yovana Soto, was admitted to OB room 117 on 05/24/21 at 1219 for evaluation of hypertension in . Pt was transferred to Labor/Delivery/Recovery room 108 on 05/24/21 at 1422 per wheelchair with and personal belongings. Plans for labor, pain management and were discussed with patient. Patient/family oriented to hospital policies and general routines including ID bracelet, bed and alarms, visiting hours, pain management, procedures, bathroom and other care routines, personal items, smoking policy, room service/diet and guest tray routines, infant security routines, and visiting hours. Patient/Family are encouraged to report perceived risks to care and to ask questions if they do not understand what they are told or what they should do. See OBIX for further documentation.
[2021-05-24] MEDS: DINOPROSTONE 10 MG VAG INSERT VAGINAL (15:13)
--- NOTE | 2021-05-24 19:43 | PM.IMHP ---
H&P: HPI History of Present Illness Date/Time: 05/24/21 19:43 Yovana is a 25yo @ 37.1wks (ANA MARIA 06[birth year]) who presented to L&D with elevated blood pressure readings at home; diastolic BP in 100's. She reports headaches (relieved by tylenol) and significant swelling. On admission, she was found to have mild range BP's; PEC w/u is negative. She was also seen on April 30 for contractions where she had two mild range BP's. She now meets criteria for GHTN and will be admitted for IOL. She reports good movement. No VB or LOF. Irregular cramping. No CP, SOB, vision changes, or epigastric pain. She has had regular care; recent growth US in the 50%ile. Her is complicated by: - Gestational hypertension; normal labs, urine p/c 0.14 - Obesity, BMI 37 - Rubella non-immune - Mild iron deficiency anemia, on iron BID - H/o nephrolithiasis; normal US/cr - Mild, intermittent asthma Chief Complaint: Elevated blood pressures, swelling Review of Systems Review of Systems: All systems reviewed & are unremarkable except as noted in HPI and below (HPI) [facility] Past Medical History Medical History Asthma Eczema Kidney stone Obesity Surgical History Surgical History H/O elbow surgery Hx of tonsillectomy Family History Family History Mother Kidney stones Asthma Plantar fasciitis, bilateral Sibling Plantar fasciitis, bilateral Social History Social History Smoking status: Never smoker Second hand tobacco smoke exposure: No Substance use: never Gender identity (if verbalized by the patient): Female Spiritual care concerns: No Meds Home Medications and Allergies Home Medications Medication Instructions Recorded Confirmed Type PNV cmb#95-ferrous fumarate-FA 1 tablet PO DAILY 02/14/21 05/24/21 History [] ferrous sulfate 143 mg PO DAILY 03/31/21 05/24/21 History famotidine [Pepcid] 20 mg PO PRN 05/19/21 05/24/21 History metoclopramide HCl [Reglan] 10 mg PO Q6H PRN 05/19/21 05/24/21 History Allergies Allergy/AdvReac Type Severity Reaction Status Date / Time No Known Allergies Allergy Verified 05/19/21 14:38 Vital Signs Vital Signs - 24 hr 05/24/21 12:40 05/24/21 13:00 05/24/21 13:31 Temperature Pulse Rate 112 H 99 90 Blood Pressure 140/95 H 140/94 H Blood Pressure [Right Arm] 141/95 H 05/24/21 13:45 05/24/21 14:01 05/24/21 14:15 Temperature Pulse Rate 90 86 90 Blood Pressure 143/92 H 139/89 130/91 H Blood Pressure [Right Arm] 05/24/21 14:59 05/24/21 15:15 05/24/21 15:30 Temperature 36.6 C Pulse Rate 97 89 97 Blood Pressure 135/86 129/79 128/79 Blood Pressure [Right Arm] Exam Const: General: cooperative, comfortable and no acute distress Nutritional Appearance: obese Resp: Effort & Inspection: normal respiratory effort and able to speak in complete sentences Cardio: Rate: regular rate GI: Inspection: normal to inspection GI Palp: No abdominal tenderness and Yes Soft to palpation : Other: FHT's: 130's/ mod abisai/ + accels/ no decels - cat 1 TOCO: irregular ctx's Cervix: Membranes: intact Presentation: cephalic Skin: General skin exam: normal color Neuro: General: patient oriented x3 Extrem: Right lower extremity: edema Left lower extremity: edema Psych: Appearance: grossly normal H&P: Results Labs Labs: Short CBC 05/24/21 Range/Units 13:16 WBC 11.0 H (4.5-10.0) K/mm3 Hgb 11.5 L (12.0-15.0) g/dL Hct 35.9 L (37.0-47.0) % Plt Count 262 (150-375) k/mm3 BMP 05/24/21 13:16 Sodium 136 L Potassium 4.1 Chloride 106 Carbon Dioxide 25 BUN 7 Creatinine 0.70 Glucose 83 Calcium 9.4 Liver Function 05/24/21 Range/Units 13:16 Total Bilirubin 0.2 (0.2
[2021-05-24] MEDS: ACETAMINOPHEN 500 MG TABLET 1000 MG PO (22:30)
[2021-05-25] VITALS (78 sets, daily range): BP systolic 88–146; BP diastolic 52–99; PULSE 71–156; RESP 16–18; TEMP 36.1–36.6; O2SAT 95–100
[2021-05-25] MEDS: LACTATED RINGERS 1,000 ML 125 ML IV CONT ×2 (04:49→08:37)
[2021-05-25] MEDS: OXYTOCIN 30 UNITS/NS 500 ML 30 UNITS/500 ML BAG 6 UNITS IV CONT (04:50)
[2021-05-25] MEDS: ONDANSETRON INJ 4 MG/2 ML VIAL IV PUSH (05:35)
--- NOTE | 2021-05-25 06:06 | WPDANESEPP ---
Anes - Eval Pre Procedure Procedure: Labor epidural Date/Time: 05/25/21 06:06 Surgeon: afua Preop Diagnosis: pain during labor Pre Op Diagnosis: Hypertension in Patient Data Age: 25 Gender: F Height: 1.65 m Weight: 123.5 kg Last Vital Signs Temp 36.2 C L 05/24/21 22:35 Pulse 93 05/25/21 05:45 BP 133/79 05/25/21 05:45 Allergies Allergy/AdvReac Type Severity Reaction Status Date / Time No Known Allergies Allergy Verified 05/19/21 14:38 Home Medications Medication Instructions Recorded Confirmed Type PNV cmb#95-ferrous fumarate-FA 1 tablet PO DAILY 02/14/21 05/24/21 History [] ferrous sulfate 143 mg PO DAILY 03/31/21 05/24/21 History famotidine [Pepcid] 20 mg PO PRN 05/19/21 05/24/21 History metoclopramide HCl [Reglan] 10 mg PO Q6H PRN 05/19/21 05/24/21 History Laboratory Tests 05/24/21 05/24/21 05/24/21 13:16 13:16 13:16 WBC 11.0 K/mm3 H K/mm3 (4.5-10.0) RBC 3.98 M/mm3 L M/mm3 (4.2-5.4) Hgb 11.5 g/dL L g/dL (12.0-15.0) Hct 35.9 % L % (37.0-47.0) MCV 90.2 fl fl (80-100) MCH 28.9 pg pg (26-34) MCHC 32.0 g/dl g/dl (32-36) RDW 16.1 % H % (11.5-14.5) Plt Count 262 k/mm3 k/mm3 (150-375) MPV 10.6 fl H fl (7.4-10.4) Immature Gran % (Auto) 0.6 % H % (0-0.5) Neut % (Auto) 74.2 % H % (45.5-73.1) Lymph % (Auto) 16.7 % L % (18.3-44.2) [place] % (Auto) 7.2 % % (2.6-8.5) Eos % (Auto) 1.1 % % (0-4.4) Baso % (Auto) 0.2 % % (0.2-1.2) Lymph # (Auto) 1.83 K/mm3 K/mm3 (0.9-3.2) [place] # (Auto) 0.8 K/mm3 H K/mm3 (0.1-0.6) Eos # (Auto) 0.1 K/mm3 K/mm3 (0-0.3) Baso # (Auto) 0.0 K/mm3 K/mm3 (0.0-0.1) Abs Immat Gran (auto) 0.07 K/mm3 H K/mm3 (0.00-0.031) Absolute Neuts (auto) 8.2 K/mm3 H K/mm3 (1.3-6.7) Absolute Nucleated RBC 0.0 K/mm3 K/mm3 (0.0-0.012) Nucleated RBC % 0.0 % % (0.0-0.2) Sodium 136 mmol/L L mmol/L (137-145) Potassium 4.1 mmol/L mmol/L (3.4-5.0) Chloride 106 mmol/L mmol/L (98-107) Carbon Dioxide 25 mmol/L mmol/L (22-30) Anion Gap 5 mmol/L L mmol/L (8-16) BUN 7 mg/dL mg/dL (7-17) Creatinine 0.70 mg/dL mg/dL (0.7-1.0) Estim Creat Clear Calc Not Reportable Estimated GFR > 60 (59 - ) Glucose 83 mg/dL mg/dL (65-105) Uric Acid 4.8 mg/dL mg/dL (2.5-7.5) Calcium 9.4 mg/dL mg/dL (8.4-10.2) Total Bilirubin 0.2 mg/dL mg/dL (0.2-1.3) AST 26 U/L U/L (14-36) ALT 20 U/L U/L (4-35) Alkaline Phosphatase 118 U/L U/L (38-126) Total Protein 7.0 g/dL g/dL (6.3-8.2) Albumin 3.4 g/dL L g/dL (3.5-5.1) Urine Color Urine Appearance Urine pH Ur Specific [place] Urine Protein Urine Glucose (UA) Urine Ketones Ur Blood (Man) Urine Nitrate Urine Bilirubin Urine Urobilinogen Leukocyte Esterase Rfl Urine RBC Urine WBC Ur Squamous Epith Cells Urine Bacteria Urine Mucus U Random Total Protein 12 mg/dL mg/dL Urine Creatinine 88.0 mg/dL mg/dL Protein/Creat Ratio 2 0.14 mg/mg mg/mg (0-0.20) RPR Blood Type Antibody Screen 05/24/21 05/24/21 05/24/21 13:16 15:01 15:01 WBC RBC Hgb Hct MCV MCH MCHC RDW Plt Count MPV Immature Gran % (Auto) Neut % (Auto) Lymph % (Auto) [place] % (Auto)
[2021-05-25] MEDS: fentaNYL CITRATE INJ (*CRX) 100 MCG/2 ML VIAL 50 MCG IV PUSH (06:18)
--- NOTE | 2021-05-25 07:53 | PM.OBPNLAB ---
Pain Control Date/time seen: 05/25/21 07:53 Pain control: tolerating well and narcotic analgesia Comments: will desire epidural soon Pelvic Exam Dilation (cm): 3 Effacement (%): 70 station: -2 Amniotic membrane status: Ruptured (AROM, clear 0750) Contractions Monitor mode: External Contraction frequency: 2 (-3) Contraction pattern: Regular Status status: Category l Comments: 140's/ mod abisai/ + accels/ no decels - cat 1 Assessment and Plan Pitocin rate (mU/min): 8 Assessment: induction ongoing Plan: continuous present management
[2021-05-25] MEDS: OXYTOCIN 30 UNITS/NS 500 ML 30 UNITS/500 ML BAG 125 UNITS IV CONT (12:35)
--- NOTE | 2021-05-25 13:01 | PM.OBPRVD ---
OB - Delivery Note Procedure Delivery date: 05/25/21 events: Induced HTN Intrapartal events: Precipitous Labor < 3 hours Induction method: per cervidil protocol Delivery augmentation: rupture of membranes and pitocin Delivery monitor: external FHT and external uterine Route of delivery: Laceration Description: Perineal - 1st Degree Delivery repair: vicryl Specimen: Yes Quantitative Blood Loss (ml): 105 Anesthesia type: Epidural Disposition: floor [place] Baby Date of : 05/25/21 Time of : 11:56 Weeks of gestation at delivery: 37 (.2) Infant gender: Male Weight (pounds): 6 Weight (ounces): 9 presentation: vertex position: Left Occiput Anterior Placenta delivery description: Expressed cord vessel description: 3 Vessels score one minute: 9 score five minutes: 9 Narrative: Margot rapidly progressed to complete dilation with strong desire to push. She pushed for approximately 25 minutes and delivered the head over intact perineum. She delivered the shoulders and body without complications. The infant had spontaneous cry and was immediately placed skin to skin. Delayed cord clamping was performed. The umbilical cord was then clamped and cut. A segment of cord was collected for cord gases. Cord blood was then collected for typing. With Pitocin running and gentle downward traction on the cord, the placenta delivered without complications. Bimanual massage was performed and good uterine tone with minimal bleeding was noted. The cervix, vagina, and perineum were examined and a first-degree perineal laceration was noted. The laceration was repaired using 3 0 Vicryl in a [id number]. Good hemostasis was noted. Good fundal tone with minimal bleeding were noted. Sponge, lap, instrument, and needle counts were correct at the end of the procedure. Mom and baby were left bonding in the birthing suite in stable condition.
[2021-05-25] MEDS: WITCH HAZEL 40 PADS 1 PAD TOPICAL (14:38)
[2021-05-25] MEDS: BENZOCAINE 20% AER SPR (*SP) 56 GM CAN 1 SPRAY TOPICAL (14:38)
--- NOTE | 2021-05-25 15:11 | PC.NURSE ---
1455-Patient transferred to post room #291 via wheelchair. Support person present. Oriented to unit, room, information board, rooming in, admission packet and security measures. Patient verbalizes understanding.
[2021-05-25] MEDS: IBUPROFEN 600 MG TABLET PO (15:31)
[2021-05-26] VITALS: BP 134/71; PULSE 97; RESP 18; TEMP 36.4; O2SAT 98
[2021-05-26] MEDS: IBUPROFEN 600 MG TABLET PO ×3 (00:45→13:47)
[2021-05-26 04:20] VITALS: BP 132/83; PULSE 92; RESP 18; TEMP 36.3; O2SAT 98
[2021-05-26 05:51] LABS: Hematocrit 32.7 % (37.0-47.0); Hemoglobin 10.3 g/dL (12.0-15.0)
[2021-05-26 07:04] VITALS: BP 138/97; PULSE 93; RESP 12; TEMP 36.8; O2SAT 98
[2021-05-26] MEDS: MULTIVIT/MIN/PREN/FOL AC/IRON TABLET 1 TAB PO (07:04)
[2021-05-26] MEDS: DOCUSATE SODIUM 100 MG CAPSULE PO ×2 (07:04→16:31)
--- NOTE | 2021-05-26 08:01 | WPDANLDPN2 ---
Anes-Prog Note L&D Date/Time: 05/26/21 08:01 Comfortable throughout: labor and delivery Neuraxial method: epidural Epidural/Spinal procedure site: clean & non-tender Neuro status: Neuro function grossly intact. Cardiovascular status: normal Respiratory status: normal Airway patency: baseline Mental status: baseline Post-Op hydration status: normal Vital Signs: Last Vital Signs Temp 97.4 F L 05/26/21 04:20 Pulse 92 05/26/21 04:20 Resp 18 05/26/21 04:20 BP 132/83 05/26/21 04:20 Pulse Ox 98 05/26/21 04:20 Pain score (VAS): 0 Post-procedural complaints: none Patient feedback: Patient satisfied with anesthetic care.
[2021-05-26 08:25] LABS: Rapid Plasma Reagin Non-Reactive (NonReactive)
--- NOTE | 2021-05-26 08:34 | P.PNOB_ITS ---
OB - PN: Subj Subjective Date/time seen: 05/26/21 08:34 PPD#1 Yovana reports doing well today. She reports her pain is controlled w/ PO meds. She reports her bleeding is light. She has tolerated regular diet. She has ambulated, voided, and passed gas. She denies symptoms of anemia. She is breast feeding. She would like her son to get circumcised today. She denies CP, SOB, fever, chills, N/V, headaches, vision changes, dizziness or palpitations. OB - PN: Obj Data Labs CBC & Chem 7: 05/26/21 03:40 05/24/21 13:16 Labs: Laboratory Results - last 24 hr 05/24/21 05/26/21 15:01 03:40 Hgb 10.3 L Hct 32.7 L RPR Non-reactive OB - PN A/P Assessment and Plan (1) Vaginal delivery: Code(s): O80 - Encounter for full-term uncomplicated delivery Status: Acute (2) Gestational hypertension affecting first : Code(s): O13.9 - Gestational [-induced] hypertension without significant proteinuria, unspecified trimester Status: Acute Plan day: 1 Plan: routine care Comments: - D/c home tomorrow - continue monitoring BP's/symptoms - F/u in 1wk for BP check - ER return precautions: fever, bleeding, n/v/abd pain, HTN - Kiran circumcised w/o issue Time Spent With Patient Time: Total time spent is greater than 50% in coordination of care (as docum ented) at patient's floor/unit and/or counseling patient: Review of Systems Review of Systems: All systems reviewed & are unremarkable except as noted in HPI and below (HPI) Exam Const: General: cooperative, comfortable and no acute distress Nutritional Appearance: obese Resp: Effort & Inspection: normal respiratory effort and able to speak in complete sentences Auscultation: clear to auscultation bilaterally Cardio: Rate: regular rate GI: Inspection: normal to inspection and non-distended GI Palp: No abdominal tenderness and Yes Soft to palpation : Other: fundus firm Skin: General skin exam: normal color Neuro: General: patient oriented x3 Extrem: General: normal to inspection Psych: Appearance: grossly normal Affect: Labile affect present (tearful because she didn't get to feed Kiran before the nurse took him) Attitude: cooperative
--- NOTE | 2021-05-26 11:15 | PC.NURSE ---
Mother called out for assist with feeding. Mother reports she is using a nipple shield for all feedings due to flat nipples and has been pumping after feedings. Reviewed application and cleaning of shield. Discussed nipple shield precautions and possible complications. Patient able to return demonstration on proper application of shield. Discussed the need to initiate pumping if continues to nurse with the shield. Patient verbalizes understanding. is awake and showing feeding cues. Reviewed infant feeding cues, frequencies, duration of feedings, feeding elimination flow sheet, and signs of adequate intake. Demonstrated stimulation techniques to wake infant for feeding. Assisted with infant to breast. Reviewed positioning/alignment in cross cradle, holding breast in ?U? hold and guided asymmetrical latch on. Several attempts before infant able to latch correctly. nursed eagerly with steady draws for short bursts followed with long pausing. Reviewed signs of a correct latch, effective nursing and suck swallow ratio. would slip to shallow latch, mother reports tenderness. Demonstrated how to adjust latch more deeply while feeding. Mother reports she can feel change in latch and less tenderness. Nipple care reviewed of lanolin after feedings, warm compresses as needed. Suggested mother stimulate while feeding to increase stimulate, increase intake and to assist with maintaining deep latch. Discussed effective vs ineffective feeding. Advised infant is eager to latch, he is not consistently nursing at this feeding and has more pausing than nursing, with occasional swallowing and colostrum transfer. Mother questions if infant should be supplemented. Advised at this time supplementation is not required, parents choose to supplement. Suggested mother initiate pumping and offer EBM if available.
--- NOTE | 2021-05-26 11:40 | PC.NURSE ---
Reviewed breast pump care and usage, pumping schedule, nipple care, and collection and storage of breast milk. Encouraged [id number], breast massage and manual expression to stimulate supply. Assessed patient for correct flange size, placement and draw. Patient verbalizes and demonstrates understanding of instructions.
[2021-05-26 12:00] VITALS: BP 134/85; PULSE 94; RESP 12; TEMP 36.3; O2SAT 98
[2021-05-26 16:25] VITALS: BP 131/90; PULSE 97; RESP 16; TEMP 37.1; O2SAT 97
[2021-05-26] MEDS: ACETAMINOPHEN 325 MG TABLET 650 MG PO (16:31)
[2021-05-26 19:34] VITALS: BP 145/85; PULSE 83; RESP 18; TEMP 36.2; O2SAT 99
[2021-05-27] VITALS: BP 141/88; PULSE 95; O2SAT 98
[2021-05-27] MEDS: IBUPROFEN 600 MG TABLET PO ×2 (05:05→13:21)
[2021-05-27] MEDS: ACETAMINOPHEN 325 MG TABLET 650 MG PO ×2 (05:06→13:20)
[2021-05-27 05:37] VITALS: BP 147/90; PULSE 100
--- NOTE | 2021-05-27 09:00 | PC.NURSE ---
Consult with pt., mother reports infant was awake and fussy during the night. Mother was unsure if she should supplement after each feeding and how much she should give. Mother is concerned is not getting enough, mother is tearful reporting she did not sleep well during the night. Suggested mother sleepy for three hours, and call out when ready for next feeding to run thru an entire feeding as she will do once home.
[2021-05-27 09:25] VITALS: BP 134/93; PULSE 90; RESP 16; TEMP 37; O2SAT 99
[2021-05-27 12:25] VITALS: BP 139/98; PULSE 90; RESP 16; TEMP 36.9; O2SAT 98
--- NOTE | 2021-05-27 12:30 | PC.NURSE ---
Mother called out for assist with feeding. Reviewed feeding cues, frequencies, duration of feedings, feeding elimination flow sheet, and signs of adequate intake. Demonstrated stimulation techniques to wake infant for feeding. Assisted with to breast. Attempted to breast without shield. Several attempts made, is unable to draw nipple in deeply. Reviewed positioning/alignment in cross cradle, holding breast in U hold and guided asymmetrical latch on. With shield in place, was able to latch deeply. Infant nursed eagerly, with steady draws for bursts followed with long pausing. Formula dribbled to shield to entice to suckle. Infant continued with bursts of suckling. Reviewed signs of a correct latch, effective nursing and suck swallow ratio. Infant was able to maintain latch without discomfort to mother. Discussed the effective vs ineffective nursing, advised at this time is not effectively nursing and making good milk/colostrum transfer. Advised to give 25mls supplementation of EBM/formula after 20 minutes of infant at breast, increasing supplementation as desires. Mother will then pump for 15 minutes. Mother has a Sprectra pump for home use. Discussed infant may not want to feed for 4 hours with increased amounts of supplementation. Mother will wake by 4 hours to feed and offer 25mls increasing as desires. Mother will pump for 20 minutes each session if every 4 hours. Reviewed once her milk transitions in, may have increased intake from nursing and may not desire as much supplementation. Reviewed signs infant may be ready to decrease supplement. Advised not to discontinue supplement until feeding evaluation of pre/post weight by ICP, follow up visit or LC appointment. Nipple care reviewed of lanolin after feedings and before pumping, warm compresses as needed. Mother is feeding as required and waking infant to feed if needed. is currently meeting outcomes for weight, output, jaundice and feeding frequencies. Mother states she feels confident to continue current feeding plan at home. Reviewed transition to breast milk, signs of adequate intake, and engorgement/relief. Instructed to call ICP if intake/output less than required. Reviewed regular medications mother is taking. Information provided per Yudelka. Reviewed community resources on the [employer] website and in the Mom/Baby guide. Information on outpatient services provided. Mother has no further questions at this time.
[2021-05-27] MEDS: MULTIVIT/MIN/PREN/FOL AC/IRON TABLET 1 TAB PO (13:20)
[2021-05-27] MEDS: MEASLES,MUMPS,RUBELLA VACCINE 0.5 ML VIAL SUB-Q (13:23)
[2021-05-27 15:00] VITALS: BP 148/98; PULSE 96; RESP 16; TEMP 36.8; O2SAT 98
--- NOTE | 2021-05-27 15:34 | PC.NURSE ---
2773 pt wants to nap please do not disturb. 1321 pt awake now.
[2021-05-29 10:44] VITALS: BP 142/98; PULSE 89; RESP 20; TEMP 37.2; O2SAT 99
--- NOTE | 2021-06-13 08:35 | PM.OBDSVD ---
DS: Admitting Diagnosis Admitting Diagnosis Admitting Diagnosis: Gestational hypertension induction of labor DS: Discharge Diagnosis Discharge Diagnosis (1) hypertension: Code(s): O16.5 - Unspecified maternal hypertension, complicating the puerperium Status: Acute (2) Vaginal delivery: Code(s): O80 - Encounter for full-term uncomplicated delivery Status: Acute (3) Obesity affecting : Qualifiers: Trimester: third trimester Qualified Code(s): O99.213 - Obesity complicating , third trimester Code(s): O99.210 - Obesity complicating , unspecified trimester Status: Acute OB - DS: Summary OB Procedures : PIH Mgmt and Ultrasound OB Procedures Intrapartum: Spontaneous Vag Delivery OB Procedures: : None Peripartum Data Infant Delivery Method: Natural Vaginal Laceration Description: Perineal - 1st Degree complications: none 1: Gender: Male Disposition of : home Status at Discharge Functional status at discharge: independent ambulation Overall status at discharge: patient is back to baseline Time Spent with Patient Time attestation: Total time spent providing and/or coordinating discharge services: Time spent: Less than 30 minutes Exam Const: General: cooperative, comfortable and no acute distress Nutritional Appearance: obese Resp: Effort & Inspection: normal respiratory effort Auscultation: clear to auscultation bilaterally Cardio: Rate: regular rate GI: Inspection: normal to inspection and non-distended GI Palp: No abdominal tenderness and Yes Soft to palpation Auscultation: normal bowel sounds : Other: fundus firm Skin: General skin exam: normal color Neuro: General: patient oriented x3 Extrem: General: normal to inspection Psych: Appearance: grossly normal Affect: normal affect Attitude: cooperative DS: Data Data Completed and Pending Completed studies during hospitalization: Pending at discharge 05/25/21 12:00 Surgical [PTH] Routine Discharge Plan Discharge Attending physician on discharge: Susana Lyon Discharging Clinician: Susana Lyon Anticipated Discharge Date/Time: 05/27/21 12:00 Patient Disposition: Home, Self-Care Activity: pelvic rest Diet: regular Discharge Instructions: Education: Mom and Baby Guide Given to: Mother Follow-Up: Call your delivering provider's office for an appointment to be seen in: 1 Week Mom and baby should come to the [facility] for the follow-up appointment. Appointment Date: Saturday, May 29, 2021 at 11:00 am Call [phone] if you are unable to keep your appointment time. BREAST CARE: * Wear a snug supportive bra. * For engorgement discomfort: Breast Feeding: * Apply warm moist washcloths * Express milk as needed to relieve engorgement * Wear loose clothing Bottle Feeding: * May apply ice packs * For sore nipples: * Identify correct latch-on * Apply warm moist washcloths before and after nursing * Air dry nipples after nursing * May apply Lansinoh cream to nipples EPISIOTOMY/PERINEAL CARE: * Until bleeding stops, use your naila bottle after urinating * Change your pad frequently throughout the day * You may take sitz baths several times a day (fill your bathtub with warm water and soak for 20 minutes.) Do NOT bathe in the water * No tub baths until seen by your physician - You may shower ACTIVITY: * Rest as much as possible. * Do not exercise or lift anything heavier than your baby (such as laundry or other children.) * Avoid stairs or driving as much as possible. * Do not put anything into the vagina. No douching, tampons, or sexual activity until seen by physician. NOTIFY PHYSICIAN IF YOU HAVE ANY QUESTIONS OR IF ANY OF THE FOLLOWING SYMPTOMS OCCUR
== END 2021-05-27 18:03 | disposition home or self-care (01) | DRG 807 ==
LOC: ANHOBOP 12:56 → ANHLDR 14:40 → ANHOB2 05-25 15:03
PROVIDERS: Admitting Provider Obstetrics & Gynecology; Visit Provider Obstetrics & Gynecology
DX: O13.4 Gestational [pregnancy-induced] hypertension without significant proteinuria, complicating childbirth (principal); Z37.0 Single live birth; O99.214 Obesity complicating childbirth; E66.9 Obesity, unspecified; O99.02 Anemia complicating childbirth; D64.9 Anemia, unspecified; O70.0 First degree perineal laceration during delivery; O76 Abnormality in fetal heart rate and rhythm complicating labor and delivery; Z3A.37 37 weeks gestation of pregnancy; J45.909 Unspecified asthma, uncomplicated; O99.52 Diseases of the respiratory system complicating childbirth
CPT/HCPCS: 36415; 80053; 81001; 82570; 84156; 84550; 85014; 85018; 85025; 86592; 86850; 86900; 86901; 88307; 90710; 99199; A9270; J2405; J2590; J2795; J3010; J7120

== ENCOUNTER 2021-05-29 11:56 | Outpatient (CLI) | payer OTHER, MEDICAID, SELFPAY ==
[2021-05-29 13:07] LABS: Basophils Percent Auto 0.3 % (0.2-1.2); Eosinophils Absolute Auto 0.3 K/mm3 (0-0.3); Eosinophils Percent Auto 2.1 % (0-4.4); Hematocrit 32.6 % (37.0-47.0); Hemoglobin 10.2 g/dL (12.0-15.0); Immature Granulocyte Absolute 0.04 K/mm3 (0.00-0.031); Immature Granulocyte Percent A 0.3 % (0-0.5); Lymphocytes Absolute Auto 1.99 K/mm3 (0.9-3.2); Lymphocytes Percent Auto 16.4 % (18.3-44.2); Mean Corpuscular HGB Conc 31.3 g/dl (32-36); Mean Corpuscular Hemoglobin 28.7 pg (26-34); Mean Corpuscular Volume 91.6 fl (80-100); Mean Platelet Volume 9.8 fl (7.4-10.4); Monocytes Absolute Auto 0.6 K/mm3 (0.1-0.6); Monocytes Percent Auto 4.9 % (2.6-8.5); Neutrophils Absolute Auto 9.2 K/mm3 (1.3-6.7); Platelet Count Result 271 k/mm3 (150-375); Red Blood Count 3.56 M/mm3 (4.2-5.4); Red Cell Distribution Width 16.5 % (11.5-14.5); White Blood Count 12.1 K/mm3 (4.5-10.0)
[2021-05-29 13:15] LABS: Alanine Aminotransferase 28 U/L (4-35); Albumin Level 3.4 g/dL (3.5-5.1); Alkaline Phosphatase 95 U/L (38-126); Anion Gap 8 mmol/L (8-16); Aspartate Amino Transferase 34 U/L (14-36); Bilirubin,Total 0.3 mg/dL (0.2-1.3); Blood Urea Nitrogen 9 mg/dL (7-17); Calcium 9.1 mg/dL (8.4-10.2); Carbon Dioxide 24 mmol/L (22-30); Chloride 107 mmol/L (98-107); Estimated Glomerular Filt Rate > 60; Glucose 94 mg/dL (65-105); Potassium 3.9 mmol/L (3.4-5.0); Sodium 139 mmol/L (137-145); Uric Acid 4.8 mg/dL (2.5-7.5)
[2021-05-29 13:30] VITALS: BP 150/109; PULSE 86
--- NOTE | 2021-05-29 13:35 | PC.NURSE ---
Dr Hsu notified of lab results and bp's, ok to [facility].
--- NOTE | 2021-06-01 19:01 | P.PNOB_ITS ---
OB - Triage/Final Diagnosis Visit Information Comments/Additional reasons for admission: I have assessed the risk for this patient, Yovana Soto, and determined that she would benefit from observation care. Evaluation Laboratory results: Laboratory Tests 05/29/21 05/29/21 12:55 12:55 WBC 12.1 H RBC 3.56 L Hgb 10.2 L Hct 32.6 L MCV 91.6 MCH 28.7 MCHC 31.3 L RDW 16.5 H Plt Count 271 MPV 9.8 Immature Gran % (Auto) 0.3 Neut % (Auto) 76.0 H Lymph % (Auto) 16.4 L [place] % (Auto) 4.9 Eos % (Auto) 2.1 Baso % (Auto) 0.3 Lymph # (Auto) 1.99 [place] # (Auto) 0.6 Eos # (Auto) 0.3 Baso # (Auto) 0.0 Abs Immat Gran (auto) 0.04 H Absolute Neuts (auto) 9.2 H Absolute Nucleated RBC 0.0 Nucleated RBC % 0.0 Sodium 139 Potassium 3.9 Chloride 107 Carbon Dioxide 24 Anion Gap 8 BUN 9 Creatinine 0.70 Estim Creat Clear Calc Not Reportable Estimated GFR > 60 Glucose 94 Uric Acid 4.8 Calcium 9.1 Total Bilirubin 0.3 AST 34 ALT 28 Alkaline Phosphatase 95 Total Protein 7.0 Albumin 3.4 L Final Diagnosis (1) hypertension: Code(s): O16.5 - Unspecified maternal hypertension, complicating the puerperium Status: Acute
== END 2021-05-29 13:55 | disposition home or self-care (01) ==
LOC: ANHOBOP 12:06 → ANHOBPP 12:46
PROVIDERS: Referring Provider Obstetrics & Gynecology; Visit Provider Obstetrics & Gynecology
DX: O16.5 Unspecified maternal hypertension, complicating the puerperium (principal); Z3A.00 Weeks of gestation of pregnancy not specified
CPT/HCPCS: 36415; 80053; 84550; 85025; 99199

== ENCOUNTER 2021-11-04 10:48 | Outpatient (CLI) | payer OTHER, MEDICAID, SELFPAY ==
--- NOTE | ~2021-11-04 | XR_ITS ---
EXAMINATION: XR abdomen/kub 1V EXAM DATE: 11/04/2021 11:06 INDICATION: Right renal stone. TECHNIQUE: Frontal projection of the upper abdomen, frontal projection lower abdomen/pelvis for inter pretation. There is no prior study for comparison. FINDINGS: There is stool overlying both renal contours. Possible identification of small bilateral n ephrolithiasis, findings indicated. There is mild lumbar levoscoliosis. Nonobstructive bowel gas mehrdad jihan. There is no organomegaly. Lung bases unremarkable. There is IUD projecting over the central aspe ct of the pelvis. IMPRESSION: Possible bilateral small nephrolithiasis. Reviewed, dictated and finalized at location A. FING ANALYST
== END 2021-11-04 10:49 | disposition home or self-care (01) ==
LOC: ANHIMG 10:54
PROVIDERS: PCP Urology; Visit Provider Urology
DX: N20.0 Calculus of kidney (principal)
CPT/HCPCS: 74018

== ENCOUNTER 2023-07-11 16:03 | Outpatient (CLI) | payer OTHER, SELFPAY ==
[2023-07-11 16:47] LABS: Beta HCG Quantitative < 2.39 mIU/ML
== END 2023-07-11 16:04 | disposition home or self-care (01) ==
PROVIDERS: PCP Urology; Visit Provider Obstetrics & Gynecology
DX: N92.6 Irregular menstruation, unspecified (principal)
CPT/HCPCS: 36415; 84702

== ENCOUNTER 2023-11-15 16:06 | Outpatient (CLI) | payer MEDICAID, SELFPAY ==
[2023-11-15 17:48] LABS: Basophils Percent Auto 0.3 % (0.2-1.2); Eosinophils Absolute Auto 0.1 K/mm3 (0-0.3); Eosinophils Percent Auto 0.8 % (0-4.4); Hematocrit 38.4 % (37.0-47.0); Hemoglobin 12.8 g/dL (12.0-15.0); Immature Granulocyte Absolute 0.04 K/mm3 (0.00-0.031); Immature Granulocyte Percent A 0.3 % (0-0.5); Lymphocytes Percent Auto 24.3 % (18.3-44.2); Mean Corpuscular HGB Conc 33.3 g/dl (32-36); Mean Corpuscular Volume 89.9 fl (80-100); Mean Platelet Volume 10.1 fl (7.4-10.4); Monocytes Absolute Auto 0.5 K/mm3 (0.1-0.6); Monocytes Percent Auto 4.3 % (2.6-8.5); Neutrophils Absolute Auto 8.1 K/mm3 (1.3-6.7); Platelet Count Result 298 k/mm3 (150-375); Red Blood Count 4.27 M/mm3 (4.2-5.4); Red Cell Distribution Width 13.1 % (11.5-14.5); White Blood Count 11.5 K/mm3 (4.5-10.0)
[2023-11-15 18:21] LABS: Alanine Aminotransferase 34 U/L (6-35); Albumin Level 4.3 g/dL (3.5-5.1); Alkaline Phosphatase 64 U/L (38-126); Anion Gap 8 mmol/L (8-16); Aspartate Amino Transferase 30 U/L (14-36); Bilirubin,Total 0.4 mg/dL (0.2-1.3); Blood Urea Nitrogen 6 mg/dL (7-17); Calcium 9.1 mg/dL (8.4-10.2); Carbon Dioxide 24 mmol/L (22-30); Chloride 105 mmol/L (98-107); Estimated Glomerular Filt Rate > 60; Glucose 149 mg/dL (65-110); Glucose 1 Hour PP 50gm Dose 150 mg/dL; Potassium 3.5 mmol/L (3.4-5.0); Sodium 137 mmol/L (137-145); Uric Acid 4.5 mg/dL (2.5-7.5)
[2023-11-15 18:30] LABS: Creatinine Urine 106.2 mg/dL
[2023-11-15 18:52] LABS: HIV 1/2 Ab P24 Ag Result Negative (Negative)
[2023-11-15 18:55] LABS: Total Protein Urine Random < 5 mg/dL
[2023-11-15 19:15] LABS: Hepatitis B Surface Antigen Negative (Negative); Rubella IgG Antibody 11.6 IU/ML
[2023-11-16 12:09] LABS: Rapid Plasma Reagin Non-Reactive (NonReactive)
[2023-11-21 13:28] LABS: CMV IgG Antibody <0.60 U/mL (<0.60)
[2023-11-30 20:11] LABS: CF Result NEGATIVE (NEGATIVE); Ethnicity NG; SMA 2.0 RISK VARIANT NOT DETECTED
[2023-12-01 13:06] LABS: SMA Results Received Yes
== END 2023-11-15 16:07 | disposition home or self-care (01) ==
LOC: ANHLAB 16:07
PROVIDERS: PCP Urology; Visit Provider Student in an Organized Health Care Education/Training Program
DX: N91.2 Amenorrhea, unspecified (principal); O13.9 Gestational [pregnancy-induced] hypertension without significant proteinuria, unspecified trimester; Z3A.00 Weeks of gestation of pregnancy not specified
CPT/HCPCS: 36415; 80053; 81050; 81220; 81329; 82570; 82947; 84156; 84550; 84702; 85025; 86592; 86644; 86703; 86747; 86762; 86787; 86850; 87086; 87088; 87340; G0432

== ENCOUNTER 2024-04-10 14:55 | Outpatient (CLI) | payer OTHER, SELFPAY ==
[2024-04-10 15:23] LABS: Basophils Percent Auto 0.2 % (0.2-1.2); Eosinophils Percent Auto 0.3 % (0-4.4); Hematocrit 31.6 % (37.0-47.0); Hemoglobin 10.3 g/dL (12.0-15.0); Immature Granulocyte Absolute 0.07 K/mm3 (0.00-0.031); Immature Granulocyte Percent A 0.5 % (0-0.5); Lymphocytes Absolute Auto 2.21 K/mm3 (0.9-3.2); Lymphocytes Percent Auto 15.4 % (18.3-44.2); Mean Corpuscular HGB Conc 32.6 g/dl (32-36); Mean Corpuscular Hemoglobin 28.2 pg (26-34); Mean Corpuscular Volume 86.6 fl (80-100); Mean Platelet Volume 10.2 fl (7.4-10.4); Monocytes Absolute Auto 0.9 K/mm3 (0.1-0.6); Monocytes Percent Auto 6.2 % (2.6-8.5); Neutrophils Absolute Auto 11.1 K/mm3 (1.3-6.7); Neutrophils Percent Auto 77.4 % (45.5-73.1); Platelet Count Result 317 k/mm3 (150-375); Red Blood Count 3.65 M/mm3 (4.2-5.4); Red Cell Distribution Width 13.6 % (11.5-14.5); White Blood Count 14.4 K/mm3 (4.5-10.0)
[2024-04-10 16:13] LABS: HIV 1/2 Ab P24 Ag Result Negative (Negative)
[2024-04-10 16:35] LABS: Glucose 1 Hour PP 50gm Dose 136 mg/dL
[2024-04-11 15:48] LABS: Rapid Plasma Reagin Non-Reactive (NonReactive)
== END 2024-04-10 14:56 | disposition home or self-care (01) ==
LOC: ANHLAB 14:57
PROVIDERS: Visit Provider Obstetrics & Gynecology
DX: Z34.90 Encounter for supervision of normal pregnancy, unspecified, unspecified trimester (principal); Z3A.00 Weeks of gestation of pregnancy not specified
CPT/HCPCS: 36415; 82947; 85025; 86592; 86703; G0432

== ENCOUNTER 2024-05-07 10:35 | Outpatient (CLI) | payer OTHER, SELFPAY ==
[2024-05-07] VITALS (7 sets, daily range): BP systolic 95–119; BP diastolic 49–79; PULSE 97–113; BMI 41.4
[2024-05-07 11:16] LABS: Basophils Percent Auto 0.3 % (0.2-1.2); Eosinophils Absolute Auto 0.1 K/mm3 (0-0.3); Eosinophils Percent Auto 0.7 % (0-4.4); Hematocrit 29.9 % (37.0-47.0); Hemoglobin 9.6 g/dL (12.0-15.0); Immature Granulocyte Absolute 0.04 K/mm3 (0.00-0.031); Immature Granulocyte Percent A 0.4 % (0-0.5); Lymphocytes Absolute Auto 1.69 K/mm3 (0.9-3.2); Mean Corpuscular HGB Conc 32.1 g/dl (32-36); Mean Corpuscular Volume 84.2 fl (80-100); Mean Platelet Volume 10.2 fl (7.4-10.4); Monocytes Absolute Auto 0.6 K/mm3 (0.1-0.6); Monocytes Percent Auto 6.2 % (2.6-8.5); Neutrophils Absolute Auto 7.5 K/mm3 (1.3-6.7); Neutrophils Percent Auto 75.4 % (45.5-73.1); Platelet Count Result 270 k/mm3 (150-375); Red Blood Count 3.55 M/mm3 (4.2-5.4)
[2024-05-07 11:30] LABS: Add Urine Microscopic? YES; Appearance Urine Cloudy (Clear); Bacteria Urine 3+ /hpf; Bilirubin Urine Negative (Negative); Blood Urine Negative (Negative); Color Urine Yellow (Yellow); Glucose Urine UA 3+ mg/dL (Negative); Ketones Urine Trace mg/dL (Negative); Leukocyte Esterase Ur Negative LEU/UL (Negative); Need Manual Microscopic Reviewed; Nitrate Urine Negative (Negative); Non Pathogenic Casts 0-2; Protein Urine Trace mg/dL (Negative); RBC Urine 0-2 /hpf (0-2); Specific Grav Ur 1.027 (1.001-1.035); Squamous Epithelial Cell Urine None Seen /hpf (Few); Urobilinogen Urine 0.2 mg/dL (<2.0); WBC Urine 21-50 /hpf (0-3)
[2024-05-07 11:31] LABS: Alanine Aminotransferase 15 U/L (6-35); Albumin Level 3.3 g/dL (3.5-5.1); Alkaline Phosphatase 99 U/L (38-126); Anion Gap 5 mmol/L (4-12); Aspartate Amino Transferase 18 U/L (14-36); Bilirubin,Total 0.4 mg/dL (0.2-1.3); Blood Urea Nitrogen 4 mg/dL (7-17); Calcium 8.6 mg/dL (8.4-10.2); Carbon Dioxide 21 mmol/L (22-30); Chloride 109 mmol/L (98-107); Estimated Glomerular Filt Rate > 60; Glucose 110 mg/dL (65-110); Potassium 3.5 mmol/L (3.4-5.0); Sodium 135 mmol/L (137-145); Uric Acid 3.1 mg/dL (2.5-7.5)
[2024-05-07 11:43] LABS: Total Protein Urine Random 10 mg/dL; Ur Ttl Prot Creatinine Ratio 0.07 mg/mg (0-0.20)
--- NOTE | 2024-05-07 12:39 | P.PNOB_ITS ---
OB - Triage/Final Diagnosis Visit Information Comments/Additional reasons for admission: I have assessed the risk for this patient, Yovana Soto, and determined that she would benefit from observation care. Evaluation Laboratory results: Laboratory Tests 05/07/24 11:07 WBC 10.0 RBC 3.55 L Hgb 9.6 L Hct 29.9 L MCV 84.2 MCH 27.0 MCHC 32.1 RDW 14.0 Plt Count 270 MPV 10.2 Immature Gran % (Auto) 0.4 Neut % (Auto) 75.4 H Lymph % (Auto) 17.0 L [place] % (Auto) 6.2 Eos % (Auto) 0.7 Baso % (Auto) 0.3 Lymph # (Auto) 1.69 [place] # (Auto) 0.6 Eos # (Auto) 0.1 Baso # (Auto) 0.0 Abs Immat Gran (auto) 0.04 H Absolute Neuts (auto) 7.5 H Absolute Nucleated RBC 0.000 Nucleated RBC % 0.0 Sodium 135 L Potassium 3.5 Chloride 109 H Carbon Dioxide 21 L Anion Gap 5 BUN 4 L Creatinine 0.50 L Estim Creat Clear Calc Not Reportable Estimated GFR > 60 Glucose 110 Uric Acid 3.1 Calcium 8.6 Total Bilirubin 0.4 AST 18 ALT 15 Alkaline Phosphatase 99 Total Protein 6.0 L Albumin 3.3 L Urine Color Yellow Urine Appearance Cloudy H Urine pH 6.0 Ur Specific [place] 1.027 Urine Protein Trace Urine Glucose (UA) 3+ H Urine Ketones Trace H Ur Blood (Man) Negative Urine Nitrate Negative Urine Bilirubin Negative Urine Urobilinogen 0.2 Add Ur Microanalysis Reviewed Leukocyte Esterase Rfl Negative Urine RBC 0-2 Urine WBC 21-50 H Ur Squamous Epith Cells None seen Urine Bacteria 3+ H Urine Casts 0-2 U Random Total Protein 10 Urine Creatinine 151.0 Protein/Creat Ratio 2 0.07 Vital signs: Vital Signs - 24 hr 05/07/24 11:08 05/07/24 11:09 05/07/24 11:16 Pulse Rate 111 H 108 H 113 H Blood Pressure 95/49 L 114/74 115/72 05/07/24 11:31 05/07/24 11:46 05/07/24 12:01 Pulse Rate 112 H 108 H 97 Blood Pressure 115/79 119/72 112/67 Final Diagnosis (1) Swelling: Code(s): R60.9 - Edema, unspecified Status: Acute
== END 2024-05-07 12:15 | disposition home or self-care (01) ==
LOC: ANHOBOP 10:40 → ANHOBPP 10:41
PROVIDERS: Visit Provider Obstetrics & Gynecology
DX: O13.9 Gestational [pregnancy-induced] hypertension without significant proteinuria, unspecified trimester (principal); Z3A.00 Weeks of gestation of pregnancy not specified
CPT/HCPCS: 36415; 59025; 80053; 81001; 82570; 84156; 84550; 85025; 87086; 87088; 99199

== ENCOUNTER 2024-06-04 16:20 | Observation (INO) | payer OTHER, SELFPAY ==
[2024-06-04 16:40] VITALS: BMI 43.3
[2024-06-04 17:21] VITALS: BP 144/87; PULSE 94
[2024-06-04 17:43] LABS: Appearance Urine Clear (Clear); Bilirubin Urine Negative (Negative); Blood Urine Negative (Negative); Color Urine Yellow (Yellow); Glucose Urine UA Negative (Negative); Ketones Urine 1+ mg/dL (Negative); Leukocyte Esterase Ur Negative LEU/UL (Negative); Nitrate Urine Negative (Negative); Protein Urine Negative (Negative); Specific Grav Ur 1.009 (1.001-1.035); Urobilinogen Urine 0.2 mg/dL (<2.0); pH Urine 6.5 (5.0-9.0)
[2024-06-04 17:46] VITALS: BP 120/70; PULSE 98
[2024-06-04 17:52] LABS: Add Urine Microscopic? YES
[2024-06-04 18:00] VITALS: BP 122/82; PULSE 101
--- NOTE | 2024-06-04 19:02 | P.PNOB_ITS ---
OB - Triage/Final Diagnosis Visit Information Comments/Additional reasons for admission: I have assessed the risk for this patient, Yovana Soto, and determined that she would benefit from observation care. Evaluation Laboratory results: Laboratory Tests 06/04/24 17:20 Urine Color Yellow Urine Appearance Clear Urine pH 6.5 Ur Specific [place] 1.009 Urine Protein Negative Urine Glucose (UA) Negative Urine Ketones 1+ H Ur Blood (Man) Negative Urine Nitrate Negative Urine Bilirubin Negative Urine Urobilinogen 0.2 Leukocyte Esterase Rfl Negative Vital signs: Vital Signs - 24 hr 06/04/24 17:21 06/04/24 17:46 06/04/24 18:00 Pulse Rate 94 98 101 H Blood Pressure 144/87 H 120/70 122/82 Final Diagnosis (1) Abdominal pain affecting : Code(s): O26.899 - Other specified related conditions, unspecified trimester; R10.9 - Unspecified abdominal pain Status: Acute
== END 2024-06-04 19:13 ==
PROVIDERS: Admitting Provider Obstetrics & Gynecology; Visit Provider Obstetrics & Gynecology
DX: O26.893 Other specified pregnancy related conditions, third trimester (principal); R10.9 Unspecified abdominal pain; Z3A.36 36 weeks gestation of pregnancy
CPT/HCPCS: 81001; G0378; G0379

== ENCOUNTER 2024-06-05 08:02 | Observation (INO) | payer OTHER, SELFPAY ==
[2024-06-05 08:30] VITALS: BMI 43.2
--- NOTE | 2024-06-05 10:43 | PC.NURSE ---
This patient, Yovana Soto, admitted to the OB room Labor/Delivery/Recovery 106 at 0802 for observation for contractions. Patient/family oriented to hospital policies and general routines including ID bracelet, bed and alarms, visiting hours, pain management, procedures, bathroom and other care routines, personal items, smoking policy, room service/diet, and visiting hours. Patient/Family are encouraged to report perceived risks to care and to ask questions if they do not understand what they are told or what they should do.
--- NOTE | 2024-06-06 07:53 | PM.OBTRLD ---
OB - Triage/Final Diagnosis Visit Information Comments/Additional reasons for admission: I have assessed the risk for this patient, Yovana Soto, and determined that she would benefit from observation care. Final Diagnosis (1) Abdominal pain affecting : Code(s): O26.899 - Other specified related conditions, unspecified trimester; R10.9 - Unspecified abdominal pain Status: Acute
== END 2024-06-05 10:20 | disposition home or self-care (01) ==
PROVIDERS: Admitting Provider Obstetrics & Gynecology; Visit Provider Obstetrics & Gynecology
DX: O26.893 Other specified pregnancy related conditions, third trimester (principal); R10.9 Unspecified abdominal pain; Z3A.36 36 weeks gestation of pregnancy
CPT/HCPCS: G0378; G0379

== ENCOUNTER 2024-06-11 10:14 | Outpatient (CLI) | payer OTHER, SELFPAY ==
--- NOTE | ~2024-06-11 | US_ITS ---
EXAMINATION: US OB limited w BPP DATE: 06/11/2024 12:27 INDICATION: Hypertension during third trimester of . TECHNIQUE: Real-time pelvic ultrasound was performed. The interpreting radiologist was not present fo r the study. COMPARISON: None. FINDINGS: There is a single living fetus in vertex presentation. The placenta is anterior. heart rate is 137 beats per minute (bpm). Amniotic fluid index measures 6.5 cm which is below normal limits (5th%- 95%: 7.5-84.4 cm at 37 weeks estimated gestational age). Biophysical profile performed by the technologist: breathing (30 sec sustained breathing in 30 minutes): 2 out of 2 movement (3 gross body movements in 30 minutes): 2 out of 2 tone (one episode of cracylc-qttefzivv-fumjcwd limb movement): 2 out of 2 Amniotic fluid pocket (2 cm): 2 out of 2 Total score: 8 out of 8 IMPRESSION: 1. Single living fetus in vertex presentation with heart rate of 137 bpm. 2. Biophysical profile 8 out of 8. 3. Oligohydramnios with decreased amniotic fluid index of 6.5 cm. Reviewed, dictated and finalized at location A.
[2024-06-11 10:38] LABS: Basophils Percent Auto 0.2 % (0.2-1.2); Eosinophils Percent Auto 0.4 % (0-4.4); Hematocrit 34.7 % (37.0-47.0); Hemoglobin 10.9 g/dL (12.0-15.0); Immature Granulocyte Absolute 0.04 K/mm3 (0.00-0.031); Immature Granulocyte Percent A 0.4 % (0-0.5); Lymphocytes Absolute Auto 2.06 K/mm3 (0.9-3.2); Lymphocytes Percent Auto 18.6 % (18.3-44.2); Mean Corpuscular HGB Conc 31.4 g/dl (32-36); Mean Corpuscular Hemoglobin 26.1 pg (26-34); Mean Platelet Volume 10.1 fl (7.4-10.4); Monocytes Absolute Auto 0.5 K/mm3 (0.1-0.6); Monocytes Percent Auto 4.8 % (2.6-8.5); Neutrophils Absolute Auto 8.4 K/mm3 (1.3-6.7); Neutrophils Percent Auto 75.6 % (45.5-73.1); Platelet Count Result 320 k/mm3 (150-375); Red Blood Count 4.18 M/mm3 (4.2-5.4); Red Cell Distribution Width 17.6 % (11.5-14.5); White Blood Count 11.1 K/mm3 (4.5-10.0)
[2024-06-11 10:45] VITALS: BP 126/77; PULSE 115
[2024-06-11 10:45] LABS: Appearance Urine Cloudy (Clear); Bacteria Urine 1+ /hpf; Bilirubin Urine Negative (Negative); Blood Urine Negative (Negative); Color Urine Dark Yellow (Yellow); Glucose Urine UA Negative (Negative); Ketones Urine Trace mg/dL (Negative); Leukocyte Esterase Ur Trace LEU/UL (Negative); Nitrate Urine Negative (Negative); Non Pathogenic Casts 0-2; Protein Urine 1+ mg/dL (Negative); RBC Urine 0-2 /hpf (0-2); Specific Grav Ur 1.024 (1.001-1.035); Squamous Epithelial Cell Urine Few /hpf (Few)
[2024-06-11 10:48] LABS: Add Urine Microscopic? YES
[2024-06-11 10:55] LABS: Alanine Aminotransferase 16 U/L (6-35); Albumin Level 3.6 g/dL (3.5-5.1); Alkaline Phosphatase 130 U/L (38-126); Anion Gap 10 mmol/L (4-12); Aspartate Amino Transferase 19 U/L (14-36); Bilirubin,Total 0.5 mg/dL (0.2-1.3); Blood Urea Nitrogen 5 mg/dL (7-17); Calcium 8.9 mg/dL (8.4-10.2); Carbon Dioxide 20 mmol/L (22-30); Chloride 104 mmol/L (98-107); Estimated Glomerular Filt Rate > 60; Glucose 112 mg/dL (65-110); Potassium 3.5 mmol/L (3.4-5.0); Sodium 134 mmol/L (137-145); Uric Acid 3.7 mg/dL (2.5-7.5)
[2024-06-11 11:00] VITALS: BP 132/79; PULSE 118
[2024-06-11 11:12] LABS: Creatinine Urine 324.4 mg/dL; Total Protein Urine Random 13 mg/dL; Ur Ttl Prot Creatinine Ratio 0.04 mg/mg (0-0.20)
[2024-06-11 11:15] VITALS: BP 125/81; PULSE 122
[2024-06-11 11:30] VITALS: BP 118/79; PULSE 116
--- NOTE | 2024-06-11 12:13 | PC.NURSE ---
Dr. Lyon on the unit. Labs and vs reviewed with provider. okay with pt going home as long as BPP and ARMANDO come back normal. MD request pt bring her BP cuff from home to her next appointment.
--- NOTE | 2024-06-11 13:44 | PC.NURSE ---
BPP, NST, labs, ROM plus negative and VS all reported to Dr. Lyon. okay with pt going home and she will follow up with her tomorrow in the office.
[2024-06-11 13:50] LABS: OBXCEM ROM Plus Negative
[2024-06-11 13:52] VITALS: BP 125/81; PULSE 115
[2024-06-11 13:56] VITALS: BP 126/77; PULSE 115
--- NOTE | 2024-06-12 20:17 | PM.IMHP ---
H&P: HPI History of Present Illness Date/Time: 06/12/24 20:17 Chief Complaint: elevated blood pressures Review of Systems Constitutional: Constitutional: Denies chills, Denies fever(s) and Denies headache(s) Eyes: Eyes: Denies change in vision ENT: Denies headache(s) Cardiovascular: Cardiovascular: Denies chest pain and Denies dyspnea Respiratory: Respiratory: Denies dyspnea Genitourinary: Genitourinary: Denies abnormal vaginal bleeding and Denies vaginal discharge Neurologic: Denies headache(s) Psychiatric: Psychiatric: Denies anxiety and Denies depression [facility] Past Medical History Medical History Abnormal glucose tolerance in Anxiety Asthma Eczema Encounter for IUD removal removal 04/07/2023 Fibromyalgia History of nephrolithotomy with removal of calculi Kidney stone Morbid obesity Surgical History Surgical History H/O elbow surgery H/O gynecological procedure Mirena IUD insertion 07/21/2021 H/O wisdom tooth extraction Hx of tonsillectomy Family History Family History Mother Plantar fasciitis, bilateral Kidney stones Asthma Sibling Plantar fasciitis, bilateral Grandparent Breast cancer Kidney stones Social History Social History Smoking status: Never smoker Second hand tobacco smoke exposure: No Alcohol intake: never Substance use: never Do You Feel Safe in your Home?: Yes Lack of Transportation: No Lack of Food: Never True Current Housing: I Have Housing Concerned About Future Housing: No Difficulty Paying Gas/Electric Bills: No Difficulty Paying for Meds: No Currently Unemployed: No Education: Bachelor's Degree Difficulty w/ Childcare or Family Care: No Living arrangements: with family Occupation/Education: occupation Gender identity (if verbalized by the patient): Female Sexual Orientation (if Verbalized by the Patient): Straight or Heterosexual Spiritual care concerns: No Meds Home Medications and Allergies Home Medications Medication Instructions Recorded Confirmed Type vits no.126-ferrous fum 1 tablet PO DAILY 05/29/24 06/12/24 History 28 mg iron-folic acid 800 mcg tablet (Classic ) Allergies Allergy/AdvReac Type Severity Reaction Status Date / Time No Known Allergies Allergy Verified 06/05/24 10:56 Exam Const: General: cooperative, no acute distress and obese Nutritional Appearance: obese Orientation/consciousness: patient oriented x3 Resp: Effort & Inspection: normal respiratory effort Cardio: Rate: regular rate GI: GI Palp: No abdominal tenderness : Other: FHT's: 1_0's/ mod abisai/ + accels/ no decels - cat 1 TOCO: ctxs q_min Cervix: 2.5/50/-3 Membranes: AROM, clear Presentation: cephalic Skin: General skin exam: normal color Neuro: General: patient oriented x3 Extrem: General: normal to inspection Psych: Appearance: grossly normal Affect: normal affect Attitude: cooperative
== END 2024-06-11 14:00 | disposition home or self-care (01) ==
LOC: ANHOBOP 10:18 → ANHLDR 10:19
PROVIDERS: Visit Provider Obstetrics & Gynecology
DX: O13.9 Gestational [pregnancy-induced] hypertension without significant proteinuria, unspecified trimester (principal); Z3A.00 Weeks of gestation of pregnancy not specified
CPT/HCPCS: 36415; 59025; 76815; 76819; 80053; 81001; 82570; 84112; 84156; 84550; 85025; 87086; 99199

== ENCOUNTER 2024-06-12 17:24 | Inpatient (IN) | payer OTHER, SELFPAY ==
[2024-06-12] VITALS (53 sets, daily range): BP systolic 89–165; BP diastolic 49–151; PULSE 82–126; TEMP 36.6; O2SAT 91–100
--- NOTE | 2024-06-12 18:16 | LDADM ---
This patient, Yovana Soto, was admitted to Labor/Delivery/Recovery 104 on 06/12/24 at 17:24. Plans for labor, pain management and were discussed with patient. Patient/family oriented to hospital policies and general routines including ID bracelet, bed and alarms, visiting hours, pain management, procedures, bathroom and other care routines, personal items, smoking policy, room service/diet and guest tray routines, infant security routines, and visiting hours. Patient/Family are encouraged to report perceived risks to care and to ask questions if they do not understand what they are told or what they should do. See OBIX for further documentation.
[2024-06-12 18:30] LABS: Basophils Percent Auto 0.3 % (0.2-1.2); Eosinophils Absolute Auto 0.1 K/mm3 (0-0.3); Eosinophils Percent Auto 0.5 % (0-4.4); Hematocrit 33.3 % (37.0-47.0); Hemoglobin 10.6 g/dL (12.0-15.0); Immature Granulocyte Absolute 0.05 K/mm3 (0.00-0.031); Immature Granulocyte Percent A 0.4 % (0-0.5); Lymphocytes Absolute Auto 2.48 K/mm3 (0.9-3.2); Lymphocytes Percent Auto 20.7 % (18.3-44.2); Mean Corpuscular HGB Conc 31.8 g/dl (32-36); Mean Corpuscular Volume 81.6 fl (80-100); Mean Platelet Volume 10.2 fl (7.4-10.4); Monocytes Percent Auto 8.3 % (2.6-8.5); Neutrophils Absolute Auto 8.4 K/mm3 (1.3-6.7); Neutrophils Percent Auto 69.8 % (45.5-73.1); Platelet Count Result 314 k/mm3 (150-375); Red Blood Count 4.08 M/mm3 (4.2-5.4); Red Cell Distribution Width 17.6 % (11.5-14.5)
[2024-06-12 19:23] LABS: HIV 1/2 Ab P24 Ag Result Negative (Negative)
--- NOTE | 2024-06-12 19:28 | WPDANESEPP ---
Anes - Eval Pre Procedure Procedure: Labor epidural Date/Time: 06/12/24 19:28 Surgeon: Camron Preop Diagnosis: Abdominal pain with contractions Pre Op Diagnosis: IOL Patient Data Age: 28 Gender: F Height: Weight: Last Vital Signs Pulse 113 H 06/12/24 19:01 BP 132/84 06/12/24 19:01 O2 Del Method Room Air 06/12/24 18:14 Allergies Allergy/AdvReac Type Severity Reaction Status Date / Time No Known Allergies Allergy Verified 06/05/24 10:56 Home Medications Medication Instructions Recorded Confirmed Type vits no.126-ferrous fum 1 tablet PO DAILY 05/29/24 06/12/24 History 28 mg iron-folic acid 800 mcg tablet (Classic ) Laboratory Tests 06/12/24 18:25 WBC 12.0 H K/mm3 (4.5-10.0) RBC 4.08 L M/mm3 (4.2-5.4) Hgb 10.6 L g/dL (12.0-15.0) Hct 33.3 L % (37.0-47.0) MCV 81.6 fl (80-100) MCH 26.0 pg (26-34) MCHC 31.8 L g/dl (32-36) RDW 17.6 H % (11.5-14.5) Plt Count 314 k/mm3 (150-375) MPV 10.2 fl (7.4-10.4) Immature Gran % (Auto) 0.4 % (0-0.5) Neut % (Auto) 69.8 % (45.5-73.1) Lymph % (Auto) 20.7 % (18.3-44.2) [place] % (Auto) 8.3 % (2.6-8.5) Eos % (Auto) 0.5 % (0-4.4) Baso % (Auto) 0.3 % (0.2-1.2) Lymph # (Auto) 2.48 K/mm3 (0.9-3.2) [place] # (Auto) 1.0 H K/mm3 (0.1-0.6) Eos # (Auto) 0.1 K/mm3 (0-0.3) Baso # (Auto) 0.0 K/mm3 (0.0-0.1) Abs Immat Gran (auto) 0.05 H K/mm3 (0.00-0.031) Absolute Neuts (auto) 8.4 H K/mm3 (1.3-6.7) Absolute Nucleated RBC 0.000 K/mm3 (0.0-0.012) Nucleated RBC % 0.0 % (0.0-0.2) RPR Pending HIV 1&2 Ab/P24 Ag 4thGn Negative (Negative) Blood Type A Positive Antibody Screen Negative : gestational age HCG: positive Patient hx anesthesia problems: none Family hx anesthesia problems: none Results Review: All pre-operative results and documents have been reviewed as part of the pre-operative evaluation. [facility] Past Medical History Medical History Abnormal glucose tolerance in Anxiety Asthma Eczema Encounter for IUD removal removal 04/07/2023 Fibromyalgia History of nephrolithotomy with removal of calculi Kidney stone Morbid obesity Surgical History Surgical History H/O elbow surgery H/O gynecological procedure Mirena IUD insertion 07/21/2021 H/O wisdom tooth extraction Hx of tonsillectomy Family History Family History Mother Plantar fasciitis, bilateral Kidney stones Asthma Sibling Plantar fasciitis, bilateral Grandparent Breast cancer Kidney stones Social History Social History Smoking status: Never smoker Second hand tobacco smoke exposure: No Alcohol intake: never Substance use: never Do You Feel Safe in your Home?: Yes Lack of Transportation: No Lack of Food: Never True Current Housing: I Have Housing Concerned About Future Housing: No Difficulty Paying Gas/Electric Bills: No Difficulty Paying for Meds: No Currently Unemployed: No Education: Bachelor's Degree Difficulty w/ Childcare or Family Care: No Living arrangements: with family Occupation/Education: occupation Gender identity (if verbalized by the patient): Female Sexual Orientation (if Verbalized by the Patient): Straight or Heterosexual Spiritual care concerns: No Exam Day of Procedure 06/12/24 19:28 Patient weight: morbidly obese
[2024-06-12] MEDS: LACTATED RINGERS 1,000 ML 125 ML IV CONT ×2 (19:45→21:22)
[2024-06-12] MEDS: OXYTOCIN 30 UNITS/NS 500 ML 30 UNITS/500 ML BAG IV CONT (19:45)
--- NOTE | 2024-06-12 20:23 | PM.IMHP ---
H&P: HPI History of Present Illness Date/Time: 06/12/24 20:23 Chief Complaint: elevated blood pressures Narrative: Yovana is a 28yo @ 37.3wks who was sent from clinic for IOL due to newly diagnosed GHTN. She recently had COVID in and has not been feeling like herself. She had a h/o GHTN with her last and had been monitoring her BPs at home, with multiple elevated blood pressures. She was found to have elevated blood pressures in clinic today. She has presented to L&D multiple times and has had documented mild range BPs. PIH w/u has been negative. ARMANDO 06/11/24 was 6.5, BPP 8/8. Her is complicated by: - Obesity -low dose ASA -failed early GCT, 3hr declines; BS checks normal - H/o gestational HTN -low dose ASA - Anemia; hgb of 10.3 --> 9.6 - s/p IV iron supplementation - COVID in @ 35wks - Newly diagnosed GHTN @ 37wks. Review of Systems Constitutional: Constitutional: Denies chills, Denies fever(s) and Denies headache(s) Eyes: Eyes: Denies change in vision ENT: Denies headache(s) Cardiovascular: Cardiovascular: Denies chest pain and Denies dyspnea Respiratory: Respiratory: Denies dyspnea Genitourinary: Genitourinary: Denies abnormal vaginal bleeding and Denies vaginal discharge Neurologic: Denies headache(s) Psychiatric: Psychiatric: Denies anxiety and Denies depression [facility] Past Medical History Medical History Abnormal glucose tolerance in Anxiety Asthma Eczema Encounter for IUD removal removal 04/07/2023 Fibromyalgia History of nephrolithotomy with removal of calculi Kidney stone Morbid obesity Surgical History Surgical History H/O elbow surgery H/O gynecological procedure Mirena IUD insertion 07/21/2021 H/O wisdom tooth extraction Hx of tonsillectomy Family History Family History Mother Plantar fasciitis, bilateral Kidney stones Asthma Sibling Plantar fasciitis, bilateral Grandparent Breast cancer Kidney stones Social History Social History Smoking status: Never smoker Second hand tobacco smoke exposure: No Alcohol intake: never Substance use: never Do You Feel Safe in your Home?: Yes Lack of Transportation: No Lack of Food: Never True Current Housing: I Have Housing Concerned About Future Housing: No Difficulty Paying Gas/Electric Bills: No Difficulty Paying for Meds: No Currently Unemployed: No Education: Bachelor's Degree Difficulty w/ Childcare or Family Care: No Living arrangements: with family Occupation/Education: occupation Gender identity (if verbalized by the patient): Female Sexual Orientation (if Verbalized by the Patient): Straight or Heterosexual Spiritual care concerns: No Meds Home Medications and Allergies Home Medications Medication Instructions Recorded Confirmed Type vits no.126-ferrous fum 1 tablet PO DAILY 05/29/24 06/12/24 History 28 mg iron-folic acid 800 mcg tablet (Classic ) Allergies Allergy/AdvReac Type Severity Reaction Status Date / Time No Known Allergies Allergy Verified 06/05/24 10:56 Vital Signs Vital Signs - 24 hr 06/12/24 18:14 06/12/24 18:24 06/12/24 19:01 Pulse Rate 103 H 113 H Blood Pressure 127/81 132/84 Oxygen Delivery Room Air 06/12/24 19:31 06/12/24 20:00 Pulse Rate 104 H 105 H Blood Pressure 131/88 133/83 Oxygen Delivery Exam Const: General: cooperative, healthy appearing, no acute distress and obese Nutritional Appearance: obese Orientation/consciousness: patient oriented x3 Resp: Effort & Inspection: normal respiratory effort Cardio: Rate: regular rate GI: GI Palp: No abdominal tenderness : Other: FHT's
[2024-06-12] MEDS: ONDANSETRON INJ 4 MG/2 ML VIAL IV PUSH (22:10)
[2024-06-13] VITALS (30 sets, daily range): BP systolic 96–161; BP diastolic 56–120; PULSE 88–151; RESP 16–18; TEMP 36.3–37.3; O2SAT 92–100
--- NOTE | 2024-06-13 00:49 | PM.OBPRVD ---
OB - Vaginal Delivery Note Procedure Delivery date: 06/13/24 Events: Gestational Hypertension Induction method: AROM Delivery augmentation: Pitocin Delivery monitor: External FHT and Internal Uterine Route of delivery: Episiotomy description: None Laceration Description: Perineal - 1st Degree Delivery repair: vicryl Specimen: Yes (placenta) Quantitative Blood Loss (ml): 100 Anesthesia type: Epidural Disposition: Floor Complications: No immediate complications Baby Date of : 06/13/24 Time of : 00:35 Weeks of gestation at delivery: 37 (.4) Infant gender: Female presentation: vertex Placenta delivery description: Expressed Cord Vessel Description: 3 Vessels, Loose, Reduced and Delayed Cord Clamping score one minute: 8 score five minutes: 9 Narrative: Margot rapidly progressed to complete dilation with strong desire to push. She pushed twice and delivered the head over intact perineum. Nuchal cord was noted and was loose and easily reduced. She easily delivered the infant's shoulders and body without complication. The was immediately placed skin to skin and had spontaneous cry. Her mouth was bulb suction. Delayed cord clamping was performed. The umbilical cord was then doubly clamped and cut. A segment of the cord was collected for cord gases. The remaining cord blood was collected for typing. With Pitocin running and gentle downward traction on the cord, the placenta delivered without complications. Bimanual massage was performed and good uterine tone with minimal bleeding was noted. She was examined and a small first-degree perineal laceration was identified. The laceration was repaired in the normal fashion using 3-0 Vicryl. Good uterine tone with minimal bleeding remained. Sponge, lap, instrument, and needle counts were correct at the end the procedure. Mom and baby were left bonding in the birthing suite in stable condition.
[2024-06-13] MEDS: OXYTOCIN 30 UNITS/NS 500 ML 30 UNITS/500 ML BAG 125 UNITS IV CONT (01:06)
[2024-06-13] MEDS: OXYTOCIN 30 UNITS/NS 500 ML 30 UNITS/500 ML BAG 999 UNITS IV CONT (03:31)
--- NOTE | 2024-06-13 04:00 | OBPPTRN ---
Patient transferred to post room #277 via wheelchair. Support person present. Oriented to unit, room, information board, rooming in, admission packet and security measures. Patient verbalizes understanding.
[2024-06-13] MEDS: IBUPROFEN 600 MG TABLET PO ×3 (04:16→18:25)
[2024-06-13] MEDS: ACETAMINOPHEN 325 MG TABLET 650 MG PO (10:02)
[2024-06-13] MEDS: DOCUSATE SODIUM 100 MG CAPSULE PO (10:04)
[2024-06-13] MEDS: MULTIVIT/MIN/PREN/FOL AC/IRON TABLET 1 TAB PO (10:04)
--- NOTE | 2024-06-13 11:00 | PC.NURSE ---
Introductions were made, then consulted with patient to assess needs related to . Mother led the conversation with her?plans to feed?her infant and the?experience so far. Mother went home attempting at breast, pumping and supplementing with her first baby. She felt very overwhelmed with the routine. She has concerns about having to do the same routine with this baby, plus having a toddler at home. Mother is leaning toward wanting to pump and bottle feed rather than continue to try to put baby to breast. Patient requested a hand pump. Electric pump and kit given with the hand pump attachment. Instructions given on cleaning, care, usage, that there should be no pain, pumping schedule for milk production, collection, and storage of human milk. Patient was assessed for correct placement, flange size, to pump for comfort and nipple stretching/stimulation for adequate milk production every 3 hours (8 times in 24 hours) 1-2 times at night. Encouraged understanding of milk production, building/maintaining a milk supply, feeding volumes, signs of adequate intake/output and how to record on the feeding sheet. Mother also given enfamil for use as needed. Mother states her breast feel full already this morning and she had an over production of milk with her first baby. Mother fitted for a size 21mm flange. She used a smaller flange last time. Parents voiced understanding of information, demonstrated learning and will call if there is a request for assistance. Reported to the Primary RN.
[2024-06-13 13:14] LABS: Rapid Plasma Reagin Non-Reactive (NonReactive)
--- NOTE | 2024-06-13 20:56 | PM.OBDSVD ---
DS: Admitting Diagnosis Discharge Date 06/14/24 Admitting Diagnosis Gestational hypertension DS: Discharge Diagnosis Discharge Diagnosis (1) Normal vaginal delivery of second : Code(s): O80 - Encounter for full-term uncomplicated delivery Status: Acute (2) Gestational hypertension: Qualifiers: Trimester: third trimester Qualified Code(s): O13.3 - Gestational [-induced] hypertension without significant proteinuria, third trimester Code(s): O13.9 - Gestational [-induced] hypertension without significant proteinuria, unspecified trimester Status: Acute OB - DS: Summary OB Procedures : NST, PIH Mgmt and Ultrasound OB Procedures Intrapartum: Spontaneous Vag Delivery OB Procedures: : None Peripartum Data Infant Delivery Method: Natural Vaginal Laceration Description: Perineal - 1st Degree Episiotomy description: None complications: none [place] 1: Gender: Female Status at Discharge Functional status at discharge: independent ambulation Overall status at discharge: patient is back to baseline Time Spent with Patient Time attestation: Total time spent providing and/or coordinating discharge services: Time spent: Less than 30 minutes Exam Const: General: cooperative, comfortable and no acute distress Nutritional Appearance: obese Orientation/consciousness: patient oriented x3 Resp: Effort & Inspection: normal respiratory effort Auscultation: clear to auscultation bilaterally Cardio: Rate: regular rate GI: Inspection: non-distended GI Palp: No abdominal tenderness and Yes Soft to palpation Auscultation: normal bowel sounds : Other: fundus firm Skin: General skin exam: normal color Neuro: General: patient oriented x3 Extrem: General: normal to inspection Psych: Appearance: grossly normal Affect: normal affect Attitude: cooperative DS: Data Data Completed and Pending Labs on day of discharge: Labs from last 24 hours 06/12/24 18:25 WBC 12.0 H RBC 4.08 L Hgb 10.6 L Hct 33.3 L MCV 81.6 MCH 26.0 MCHC 31.8 L RDW 17.6 H Plt Count 314 MPV 10.2 Immature Gran % (Auto) 0.4 Neut % (Auto) 69.8 Lymph % (Auto) 20.7 [place] % (Auto) 8.3 Eos % (Auto) 0.5 Baso % (Auto) 0.3 Lymph # (Auto) 2.48 [place] # (Auto) 1.0 H Eos # (Auto) 0.1 Baso # (Auto) 0.0 Abs Immat Gran (auto) 0.05 H Absolute Neuts (auto) 8.4 H Absolute Nucleated RBC 0.000 Nucleated RBC % 0.0 RPR Pending HIV 1&2 Ab/P24 Ag 4thGn Negative Blood Type A Positive Antibody Screen Negative Discharge Plan Discharge Attending physician on discharge: Susana Lyon Discharging Clinician: Susana Lyon Anticipated Discharge Date/Time: 06/15/24 11:00 Patient Disposition: Home, Self-Care Activity: may shower and pelvic rest Diet: regular Patient Instructions: Vaginal Delivery (DC), Hypertension During (DC) Stand Alone Forms: General Discharge Information Follow-up/Referrals: Susana Lyon MD [Physician] - 4 Weeks Discharge Medications: New acetaminophen 325 mg Tablet 650 mg PO Q6H PRN (Reason: Mild Pain (1-3) Or Headache) Qty: 60 0RF docusate sodium 100 mg Capsule 100 mg PO BID PRN (Reason: Constipation) Qty: 90 0RF ibuprofen 600 mg Tablet 600 mg PO Q6H PRN (Reason: Cramping) Qty: 40 0RF Continued Classic 28 mg iron- 800 mcg Tablet 1 tablet PO DAILY Date of admission: 06/12/24 17:24 Primary Care Provider: PHYSICIAN,ASSISTANT PROFESSOR OF LIFE SCIENCES Admitting Provider: Susana Lyon Attending physician on admission: Susana Lyon Condition: Stable
[2024-06-14] VITALS (7 sets, daily range): BP systolic 117–134; BP diastolic 72–90; PULSE 81–102; RESP 16–20; TEMP 36.4–36.8; O2SAT 98–100
[2024-06-14] MEDS: IBUPROFEN 600 MG TABLET PO ×3 (04:12→17:19)
[2024-06-14 05:03] LABS: Hematocrit 33.1 % (37.0-47.0); Hemoglobin 10.1 g/dL (12.0-15.0); Mean Corpuscular HGB Conc 30.5 g/dl (32-36); Mean Corpuscular Hemoglobin 25.9 pg (26-34); Mean Corpuscular Volume 84.9 fl (80-100); Mean Platelet Volume 11.2 fl (7.4-10.4); Platelet Count Result 243 k/mm3 (150-375); Red Cell Distribution Width 17.8 % (11.5-14.5); White Blood Count 12.3 K/mm3 (4.5-10.0)
[2024-06-14 05:20] LABS: Chloride 107 mmol/L (98-107); Potassium 3.8 mmol/L (3.4-5.0); Sodium 135 mmol/L (137-145)
[2024-06-14 05:21] LABS: Anion Gap 8 mmol/L (4-12); Bilirubin,Total 0.3 mg/dL (0.2-1.3); Blood Urea Nitrogen 8 mg/dL (7-17); Carbon Dioxide 20 mmol/L (22-30); Estimated Glomerular Filt Rate > 60; Glucose 88 mg/dL (65-110)
[2024-06-14 05:22] LABS: Alanine Aminotransferase 13 U/L (6-35); Albumin Level 3.2 g/dL (3.5-5.1); Alkaline Phosphatase 97 U/L (38-126); Aspartate Amino Transferase 24 U/L (14-36)
--- NOTE | 2024-06-14 07:12 | P.PNOB_ITS ---
OB - PN: Subj Subjective Date/time seen: 06/14/24 07:15 Narrative: PPD#1 Yovana reports doing well today. 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 Her pain is controlled. She is tolerating regular diet, voiding, passing gas, and ambulating without issues. She is pumping/supplementing. Would like to go home today. No symptoms of pre-eclampsia OB - PN: Obj Data Labs 06/14/24 04:24 06/14/24 04:24 Labs: Laboratory Results - last 24 hr 06/12/24 18:25 RPR Non-reactive OB - PN A/P Assessment and Plan (1) Normal vaginal delivery of second : Code(s): O80 - Encounter for full-term uncomplicated delivery Status: Acute (2) Gestational hypertension: Qualifiers: Trimester: third trimester Qualified Code(s): O13.3 - Gestational [-induced] hypertension without significant proteinuria, third trimester Code(s): O13.9 - Gestational [-induced] hypertension without significant p roteinuria, unspecified trimester Status: Acute Plan day: 1 Plan: routine care and discharge home (possibly this PM) Comments: - PO pain meds - Regular diet - Ambulation and hydration encouraged - Continue putting baby to breast q2-3hr - BPs mild/moderate range; asymptomatic Time Spent With Patient Time: Total time spent is greater than 50% in coordination of care (as documented) at patient's floor/unit and/or counseling patient: Review of Systems Constitutional: Constitutional: Denies chills, Denies fever(s) and Denies headache(s) Eyes: Eyes: Denies change in vision ENT: Denies dizziness and Denies headache(s) Cardiovascular: Cardiovascular: Denies chest pain, Denies palpitations and De nies dyspnea Respiratory: Respiratory: Denies cough and Denies dyspnea Gastrointestinal: Gastrointestinal: Denies nausea and Denies vomiting Neurologic: Denies dizziness and Denies headache(s) Endocrine: Endocrine: Denies palpitations Exam Const: General: cooperative, comfortable and no acute distress Orientation/consciousness: patient oriented x3 Resp: Effort & Inspection: normal respiratory effort Auscultation: clear to auscultation bilaterally Cardio: Rate: regular rate GI: Inspection: non-distended GI Palp: No abdominal tenderness and Yes Soft to palpation Auscultation: normal bowel sounds : Other: fundus firm Skin: General skin exam: normal color Neuro: General: patient oriented x3 Extrem: General: normal to inspection Psych: Appearance: grossly normal Affect: normal affect Attitude: cooperative
[2024-06-14] MEDS: DOCUSATE SODIUM 100 MG CAPSULE PO (09:22)
[2024-06-14] MEDS: MULTIVIT/MIN/PREN/FOL AC/IRON TABLET 1 TAB PO (09:22)
--- NOTE | 2024-06-14 10:48 | WPDANLDPN2 ---
Anes-Prog Note L&D Date/Time: 06/14/24 10:48 Comfortable throughout: labor and delivery Neuraxial method: epidural Epidural/Spinal procedure site: clean & non-tender Neuro status: Neuro function grossly intact. Cardiovascular status: normal Respiratory status: normal Airway patency: baseline Mental status: baseline Post-Op hydration status: normal Vital Signs: Last Vital Signs Temp 36.6 C 06/14/24 07:30 Pulse 84 06/14/24 07:30 Resp 18 06/14/24 07:30 BP 129/89 06/14/24 07:30 Pulse Ox 99 06/14/24 07:30 O2 Del Method Room Air 06/13/24 07:30 Pain score (VAS): 12/07 I/O: Intake & Output 06/13/24 06/14/24 06/14/24 23:59 07:59 15:59 Intake Total 1200 500 Output Total 1830 500 Balance -630 0 Post-procedural complaints: none Patient feedback: Patient satisfied with anesthetic care.
[2024-06-15 00:14] VITALS: BP 133/68
[2024-06-15] MEDS: IBUPROFEN 600 MG TABLET PO ×2 (00:15→08:38)
[2024-06-15 04:28] VITALS: BP 106/63
[2024-06-15 07:20] VITALS: BP 127/80; PULSE 103; RESP 103; TEMP 36.6; O2SAT 97
--- NOTE | 2024-06-15 08:07 | PM.OBPNVD ---
OB - PN: Subj Subjective Date/time seen: 06/15/24 08:07 Patient comments: no complaints, pain well controlled and tolerating diet [place] feeding status: exclusively breast feeding Narrative: patient doing well this AM. No complaints. Pain is well controlled. She reports minimal bleeding. She is ambulating and voiding without difficulty. She is tolerating PO. She denies N/V, fever, chills. OB - PN: Obj Data Labs 06/14/24 04:24 06/14/24 04:24 OB - PN A/P Plan day: 2 Plan: discharge home Comments: patient doing well, no concerns pain controlled VSS bleeding is light pt desires discharge home today Time Spent With Patient Time: Total time spent is greater than 50% in coordination of care (as documented) at patient's floor/unit and/or counseling patient: Time with patient: less than 15 minutes Review of Systems Review of Systems: All systems reviewed & are unremarkable except as noted in HPI and below Exam Const: General: comfortable and no acute distress Resp: Effort & Inspection: normal respiratory effort Cardio: Rate: regular rate GI: GI Palp: Yes Soft to palpation and No Tenderness to palpation present (GI) Auscultation: normal bowel sounds Other: fundus firm and below umbilicus. Psych: Affect: normal affect
[2024-06-15] MEDS: MULTIVIT/MIN/PREN/FOL AC/IRON TABLET 1 TAB PO (08:38)
[2024-06-15] MEDS: DOCUSATE SODIUM 100 MG CAPSULE PO (08:38)
[2024-06-15] MEDS: TETANUS,DIPHTHERIA,AC PERTUSSIS ADULT (0.5 ML) BOOSTRIX IM (08:39)
--- NOTE | 2024-06-15 09:00 | PC.NURSE ---
Met with mother regarding needs. Mother has pumped some but did not pump last night. She is feeling that and pumping with a and a toddler at home is overwhelming. She is leaning towards just bottle feeding with formula at this time. She bottle fed last night and did not attempt to put baby to breast. Reviewed how to contact services if she has needs after she goes home. Also reviewed required urine output and stools and increasing feeding volumes as needs. Mother is comfortable being discharged with her current feeding routine. She will ask for further assistance as needed.
[2024-06-16 14:04] VITALS: BP 120/72; PULSE 91; RESP 18; TEMP 36.7; O2SAT 98
== END 2024-06-15 11:30 | disposition home or self-care (01) | DRG 560 ==
LOC: ANHLDR 17:26 → ANHOB2 06-13 05:50
PROVIDERS: Admitting Provider Obstetrics & Gynecology; Visit Provider Obstetrics & Gynecology
DX: O13.4 Gestational [pregnancy-induced] hypertension without significant proteinuria, complicating childbirth (principal); O99.214 Obesity complicating childbirth; O99.02 Anemia complicating childbirth; D64.9 Anemia, unspecified; E66.01 Morbid (severe) obesity due to excess calories; O70.0 First degree perineal laceration during delivery; O69.81X0 Labor and delivery complicated by cord around neck, without compression, not applicable or unspecified; Z3A.37 37 weeks gestation of pregnancy; Z37.0 Single live birth
CPT/HCPCS: 36415; 80053; 85025; 85027; 86592; 86703; 86850; 86900; 86901; 86923; 88307; 90715; A9270; G0432; J2405; J2590; J2795; J7120